=== PATIENT | female | born 1985 | race Caucasian/White ===

== ENCOUNTER → 2021-10-07 02:56 | Outpatient (CLI) | payer OTHER, SELFPAY ==
[2021-10-07 13:57] LABS: Influenza Control Positive
[2021-10-08 14:36] LABS: SARS-CoV-2 RNA PCR Positive
== END ==
PROVIDERS: PCP Family Medicine; Visit Provider Nurse Practitioner Family
DX: R50.9 Fever, unspecified (principal); R68.89 Other general symptoms and signs; U07.1 COVID-19
CPT/HCPCS: 87804; C9803; U0003; U0005

== ENCOUNTER 2022-03-24 01:17 | Day surgery (SDC) | payer OTHER, SELFPAY ==
[2022-03-16 13:06] VITALS: BMI 52.2
--- NOTE | 2022-03-16 13:24 | PC.NURSE ---
Report to the Outpatient Waiting Room, entrance under the green pavilion located off [facility], at time 0600 on date 03/24/22 OR Time: 0730_. - You and your visitor will be asked a series of questions to screen for COVID 19 for your protection. - Only one visitor is allowed at this time. - The patient visitor is requested to leave or wait in car when not with patient. - A mask is required within the hospital. Patients may have clear liquids (water, carbonated beverages, clear teas, apple juice) until 3 hours prior to surgery with a maximum of 20 ounces. - No food from midnight until time of surgery - Infants may have breast milk until 4 hours before surgery, formula 6 hours prior to surgery. - Children will be allowed to drink immediately following surgery. If applicable, please bring a bottle or sippy cup to assist with drinking. Juice, water, soda, and popsicles are readily available. For infants on formula, please bring formula the day of surgery. Pacifiers are allowed. Take the following medications with a SIP of water the morning of surgery:n/a_ Medications to discontinue per physician n/a Date to take last dose Please no make-up, nail swazi, hairspray, perfume, deodorant, or body powder the day of surgery. No jewelry (including any body piercings) or valuables the day of surgery, leave them at home. Please take a shower or bath the night before, or the morning of, surgery with an antibacterial soap. Wear comfortable, loose fitting clothing. Children are encouraged to wear pajamas. - Jewelry must be removed prior to entering the operating room. Rings and piercings that are not removed may be cut off. - The hospital will not accept responsibility for valuables. - Please leave all valuables, including medications, at home the day of surgery. If you are going home after surgery, a licensed local owner operator truck driver must drive you home. - NO public transportation without another adult. - We recommend that an adult stay with you for 24 hours following discharge. - We also recommend that you do not drive, make important decision, drink alcoholic beverages, or take any drugs that were not prescribed by your health care provider for at least 24 hours after your discharge time. For Pediatric surgeries, we recommend two adults accompany the child home (only one inside the building at this time). Follow any additional instructions given to you from your surgeon. If you or anyone in your household have experienced Covid symptoms in the past week, please notify your surgeon or the nurse liaison at the phone number below for possible testing. Telephone instructions given to Angela Wiley and asked if any additional questions and then verbalized understanding. Patient advised to call surgeon office or pre surgery nurse liaison [phone] if any additional questions.
[2022-03-24] VITALS (8 sets, daily range): BP systolic 97–138; BP diastolic 76–93; PULSE 72–88; RESP 12–20; TEMP 36.3–37.4; O2SAT 97–100
[2022-03-24] MEDS: ACETAMINOPHEN 500 MG TABLET 1000 MG PO (06:22)
--- NOTE | 2022-03-24 06:49 | WPDANESEPPF ---
Anes - Initial Pre Proc Eval Procedure: Operation Date: 03/24/22 07:30 Proposed Procedures p Hysteroscopy with Biopsy of Endometrium and Polypectomy - Ej Jovel MD Date/Time: 03/24/22 06:49 Surgeon: Ej Jovel MD Pre Op Diagnosis: irregular periods Patient Data Age: 36 Gender: F Height: 1.68 m Weight: 149.5 kg Last Vital Signs Temp 36.3 C L 03/24/22 06:16 Pulse 88 03/24/22 06:16 Resp 16 03/24/22 06:16 BP 136/89 03/24/22 06:16 Pulse Ox 97 03/24/22 06:16 O2 Del Method Room Air 03/24/22 06:16 Allergies Allergy/AdvReac Type Severity Reaction Status Date / Time No Known Allergies Allergy Mild Verified 08/14/15 10:15 Home Medications Medication Instructions Recorded Confirmed Type metformin 500 mg tablet 500 mg PO BID 03/16/22 03/24/22 History Patient hx anesthesia problems: none Family hx anesthesia problems: none Results Review: All pre-operative results and documents have been reviewed as part of the pre-operative evaluation. [facility] Past Medical History Medical History (Updated 03/24/22 @ 06:50 by Karel Stallings MD) Morbid obesity with BMI of 50.0-59.9, adult Social History Social History Smoking status: Never smoker Alcohol intake: current Substance use: never Substance use type: does not use Living arrangements: with family Spiritual care concerns: No Anes - Eval Final PreProcedure Day of Procedure 03/24/22 06:49 Patient weight: super morbidly obese Heart: regular rate and rhythm Lungs: clear to auscultation and normal air movement Airway: Mallampati scale class II Neurological: alert and oriented Last oral intake: >/= 8 hours ASA classification: III Emergent: no Anesthetic plan: proceed Anesthesia type and monitoring: general GIVS and LMA Results Review: All pre-operative results and documents have been reviewed as part of the pre-operative evaluation. Informed Consent: The patient's anesthetic plan and its attendant risks and benefits were discussed with the patient/family/POA. Questions were solicited and answers provided to the satisfaction of the patient/family/POA.
[2022-03-24] MEDS: LACTATED RINGERS 1,000 ML 30 ML IV CONT (07:17)
--- NOTE | 2022-03-24 07:20 | WPDHPUPDATE1 ---
History and Physical Update Update Date/Time: 03/24/22 07:20 History and Physical has been reviewed, including an updated exam of the patient. There are NO changes in the patient's condition. Risks, benefits, and alternatives have been discussed and questions answered. Patient agrees to proceed with procedure.
--- NOTE | 2022-03-24 08:07 | W.PM.PROC2 ---
Procedure Note - Detailed Date of Procedure 03/24/22 Pre-op Diagnosis irregular periods, endometrial lesion Post-op Diagnosis Same (Endocervical lesions) Procedure Performed Hysteroscopy D&C Surgeon Ej Jovel MD Anesthesia MAC Indications abnormal uterine bleeding, endometrial lesion Findings Two small polyps at the internal cervical os. Curettage removed these with the exception of some fibrous tissue. Firm redundant tissue throughout the endometrium. Normal vulva vagina and cervix. Description of Procedure the patient was taken the operating room. She was prepped and draped in the dorsal lithotomy position after induction of mac anesthesia. A speculum was placed in the vagina. The cervix was grasped with a tenaculum. The cervix was dilated about 1 cm. The hysteroscope was inserted. The intrauterine cavity and endocervix were evaluated. Hysteroscope was withdrawn. A medium-size curette was used to curettage all the surfaces were within the endometrial cavity. the sample was collected on Telfa and sent to pathology. The hysteroscope was reinserted and the above findings were noted. Patient tolerated the procedure well. The speculum and tenaculum were removed. She was taken recovery room in stable condition. Sponge lap and needle counts were correct x2. Estimated Blood Loss 40 Drains No Packing No Pathology Yes Complications No immediate complications Condition Stable Disposition PACU
[2022-03-24] MEDS: oxyCODONE HCL (*CRX) 5 MG TAB IR PO (09:00)
== END 2022-03-24 09:50 | disposition home or self-care (01) ==
PROVIDERS: PCP Family Medicine; Visit Provider Obstetrics & Gynecology
PROC: 0U5B8ZZ Destruction of Endometrium, Via Natural or Artificial Opening Endoscopic (ICD-10-PCS; CPT 58563; principal; 2022-03-24 07:30)
DX: N92.6 Irregular menstruation, unspecified (principal); N84.0 Polyp of corpus uteri; E66.01 Morbid (severe) obesity due to excess calories; Z68.43 Body mass index [BMI] 50.0-59.9, adult
CPT/HCPCS: 58558; 88305; A9270; J1100; J1885; J2250; J2405; J2704; J3010; J7030; J7120

== ENCOUNTER 2022-04-12 19:01 | Emergency (ER) | payer OTHER, SELFPAY ==
[2022-04-12 19:05] VITALS: BP 134/88; PULSE 103; RESP 16; TEMP 37.7; O2SAT 98
--- NOTE | 2022-04-12 19:07 | ED.URI ---
HPI - URI/Sore Throat General Chief Complaint: Skin/Abscess/Foreign Body Stated Complaint: Headache,Fever Time Seen by Provider: 04/12/22 19:07 Source: patient Mode of arrival: ambulatory Limitations: no limitations History of Present Illness HPI Narrative: 36 yo F presents with c/o low grade fever, fatigue, generalized weakness, headache for 2 days. States her removed tick from her scalp tuesday. Thinks may have been there one day. States he first used heat to try to get tick to unattached but did not work. Then he cut a whole in an old credit card and put alot of pressure against her head with the card and finally pulled it off. States her scalp was very sore from removing it and developed fever and fatigue 2 days later. All systems reviewed and negative except as noted above. Related Data Home Medications Medication Instructions Recorded Confirmed metformin 500 mg tablet 500 mg PO BID 03/16/22 04/12/22 Allergies Allergy/AdvReac Type Severity Reaction Status Date / Time No Known Allergies Allergy Mild Verified 04/12/22 19:05 Review of Systems Review of Systems: CONSTITUTIONAL: Reports fever and fatigue. Denies chills, or sweats. EYES: Denies visual changes, redness, or discharge. ENT: Denies rhinorrhea, congestion, sore throat, or otalgia. CARDIOVASCULAR: Denies chest pain, palpitations, or edema. RESPIRATORY: Denies cough or dyspnea. GASTROINTESTINAL: Denies abdominal pain, nausea, vomiting, or diarrhea. GENITOURINARY: Denies dysuria or hematuria. SKIN: Denies rash or itching. MUSCULOSKELETAL: Denies back pain, joint pain, or myalgia. NEUROLOGIC: Reports headache. Denies numbness, or weakness. PSYCHIATRIC: Denies anxiety or depression. All other systems reviewed are negative, except as documented in HPI. [facility] Past Medical History Medical History (Updated 04/12/22 @ 19:34 by Nya Garcia NP) Morbid obesity with BMI of 50.0-59.9, adult Social History Social History Smoking status: Never smoker Alcohol intake: current Substance use: never Substance use type: does not use Spiritual care concerns: No Comments At time of signature, agree with nursing past medical, surgical, social and family history. There is no relevant family history pertinent to the presenting complaint. Exam Narrative: GENERAL: This is a well-nourished, well-developed patient, in no apparent distress. HEAD: normocephalic, atraumatic. EYES: PERRL. Sclera clear/white. Vision is grossly intact. EARS: External ears normal NOSE: External nose normal NECK: Neck supple, non-tender without lymphadenopathy, masses or thyromegaly. CARDIOVASCULAR: Regular rate and rhythm without murmurs, gallops, or rubs. RESPIRATORY: Clear to auscultation. Breath sounds equal bilaterally. No wheezes, rales, or rhonchi. SKIN: warm, Dry, intact with no suspicious lesions or rash, good texture and turgor. erythema to L crown area of scalp approx. 5cm diamter with warmth. scab to center mostly likely from tick bite. swollen. no fluctuance. NEURO: awake, alert, and oriented to person, place and time. There were no obvious focal neurologic abnormalities. EXTREMITIES: No joint tenderness, effusion, or edema noted. Course Course Level of Care: Express Care Visit Vital Signs Vital signs: Vital Signs Temperature 37.7 C H 04/12/22 19:05 Pulse Rate 103 H 04/12/22 19:05 Respiratory Rate 16 04/12/22 19:05 Blood Pressure 134/88 04/12/22 19:05 Pulse Oximetry 98 04/12/22 19:05 Oxygen Delivery Room Air 04/12/22 19:05 Temperature 37.7 C H 04/12/22 19:05 Pulse Rate 103 H 04/12/22 19:05 Respiratory Rate 16 04/12/22 19:05 Blood Pressure 134/88 04/12/22 19:05 Pulse Oximetry 98 04/12/22 19:05 Oxygen Delivery Room Air 04/12/22 19:05 Reviewed MDM - URI/Sore Throat MDM Narrative Medical decision making narrative: Patient is aware of diagnosis, understands and agrees to treatment plan. Anticipatory gu
== END 2022-04-12 19:35 | disposition home or self-care (01) ==
PROVIDERS: Emergency Provider Nurse Practitioner Family; PCP Family Medicine
DX: L03.811 Cellulitis of head [any part, except face] (principal); S00.06XA Insect bite (nonvenomous) of scalp, initial encounter; W57.XXXA Bitten or stung by nonvenomous insect and other nonvenomous arthropods, initial encounter; Z20.822 Contact with and (suspected) exposure to COVID-19; E66.01 Morbid (severe) obesity due to excess calories; Z68.43 Body mass index [BMI] 50.0-59.9, adult
CPT/HCPCS: 87426; 99213; C9803; G0463

== ENCOUNTER 2022-05-22 07:25 | Outpatient (CLI) | payer OTHER, SELFPAY ==
[2022-05-25 20:42] LABS: Progesterone 12.5 ng/mL (***)
== END 2022-05-22 07:26 | disposition home or self-care (01) ==
LOC: ANHLAB 07:28
PROVIDERS: PCP Family Medicine; Visit Provider Advanced Practice Midwife
DX: Z31.9 Encounter for procreative management, unspecified (principal)
CPT/HCPCS: 36415; 84144

== ENCOUNTER 2022-06-12 07:11 | Outpatient (CLI) | payer OTHER, SELFPAY | END 2022-06-12 07:12 | disposition home or self-care (01) | LOC: ANHLAB 07:14 | PROVIDERS: PCP Family Medicine; Visit Provider Advanced Practice Midwife | DX: N97.9 Female infertility, unspecified (principal) | CPT/HCPCS: 36415; 84702 ==

== ENCOUNTER 2022-06-14 05:58 | Emergency (ER) | payer OTHER, SELFPAY ==
--- NOTE | ~2022-06-14 | US_ITS ---
EXAMINATION: US OB <=14 wk fetus w TV DATE: 06/14/2022 08:18 INDICATION: Vaginal bleeding. TECHNIQUE: Real-time transabdominal and transvaginal pelvic ultrasound was performed. COMPARISON: None. FINDINGS: TRANSABDOMINAL ULTRASOUND: The uterus measures 9.1 x 3.2 x 7.5 cm. TRANSVAGINAL ULTRASOUND: There is no visible intrauterine gestational sac. The endometrial complex me asures 1.8 cm in thickness. There is trace fluid in the cervix. The ovaries are not visualized. There is no free fluid in the pelvis. IMPRESSION: 1. No visible intrauterine gestational sac, which may be normal in early . Ectopic pregnanc y and spontaneous are not excluded. Serial beta-hCGs are recommended. Reviewed, dictated and finalized at location A. IMPRESSION: 1. No visible intrauterine gestational sac, which may be normal in early pregn dandre. Ectopic and spontaneous are not excluded. Serial beta- hCGs are recommended.
[2022-06-14 06:08] VITALS: BP 131/86; PULSE 97; RESP 18; TEMP 36.4; O2SAT 98
--- NOTE | 2022-06-14 06:15 | ED.GENADULT ---
HPI - General Adult General Chief complaint: Vaginal Bleeding Stated complaint: Vag Bleeding 6 Weeks Time Seen by Provider: 06/14/22 06:19 History of Present Illness HPI narrative: 36-year-old female that is approximately 6 weeks presented to the emergency department for evaluation of vaginal bleeding and lower abdominal cramping. Patient states she began having bleeding at 3 AM this morning. Patient states she has been passing clot as well. Patient has not yet had an ultrasound with this . Patient was started on progesterone 2 days ago. This is the patient's first . Patient follows up with Dr. Jovel and Dr. Cerrato. Related Data Home Medications Medication Instructions Recorded Confirmed metformin 500 mg tablet 500 mg PO BID 03/16/22 04/12/22 progesterone micronized 200 mg mg 06/14/22 06/14/22 capsule Allergies Allergy/AdvReac Type Severity Reaction Status Date / Time No Known Allergies Allergy Mild Verified 06/14/22 06:05 Review of Systems Review of Systems: CONSTITUTIONAL: Denies fever, chills, or sweats. EYES: Denies visual changes, redness, or discharge. ENT: Denies rhinorrhea, congestion, sore throat, or otalgia. CARDIOVASCULAR: Denies chest pain, palpitations, or edema. RESPIRATORY: Denies cough or dyspnea. GASTROINTESTINAL: Lower abdominal pain with vaginal bleeding, denies nausea or vomiting GENITOURINARY: Denies dysuria or hematuria. SKIN: Denies rash or itching. MUSCULOSKELETAL: Denies back pain, joint pain, or myalgia. NEUROLOGIC: Denies headache, numbness, or weakness. REPLACED BY [facility] Past Medical History Medical History (Updated 06/14/22 @ 09:17 by Krystle Elizabeth MD) Morbid obesity with BMI of 50.0-59.9, adult Social History Social History Smoking status: Never smoker Alcohol intake: current Substance use: never Substance use type: does not use Spiritual care concerns: No Exam Narrative: APPEARANCE: Well appearing, no pain, no distress, well-nourished. HEAD: normocephalic, atraumatic. EYES: PERRLA/EOMI, conjunctivae clear. NOSE: Normal no drainage THROAT: Pharynx clear, no exudate. NECK: Supple. No adenopathy, no masses. RESPIRATORY: Airway patent, respirations nonlabored. Clear to auscultation bilaterally, no rales, rhonchi, wheezing. CARDIOVASCULAR: Regular rate and rhythm without murmurs rubs or gallops. ABDOMINAL: Soft, nontender, nondistended, normal bowel sounds Pelvic: Some vaginal bleeding and clot in the pelvic vault. No hemorrhaging. MUSCULOSKELETAL: Moves all extremities. Strength/ROM intact, No edema, No calf tenderness. NEURO: Alert. Cranial nerves II through XII intact. Grossly intact SKIN: Warm, dry. Normal Color Course Course Emergency Course: At time of signout to Dr. Elizabeth ultrasound is pending. Vital Signs Vital signs: Vital Signs Temperature 36.4 C 06/14/22 06:08 Pulse Rate 97 06/14/22 06:08 Respiratory Rate 18 06/14/22 06:08 Blood Pressure 131/86 06/14/22 06:08 Pulse Oximetry 98 06/14/22 06:08 Temperature 36.4 C 06/14/22 06:08 Pulse Rate 89 06/14/22 09:10 Respiratory Rate 17 06/14/22 09:10 Blood Pressure 134/68 06/14/22 09:10 Pulse Oximetry 99 06/14/22 09:10 Medical Decision Making Vital Signs Vital Signs: Vital Signs Temperature 36.4 C 06/14/22 06:08 Pulse Rate 97 06/14/22 06:08 Respiratory Rate 18 06/14/22 06:08 Blood Pressure 131/86 06/14/22 06:08 Pulse Oximetry 98 06/14/22 06:08 Temperature 36.4 C 06/14/22 06:08 Pulse Rate 89 06/14/22 09:10 Respiratory Rate 17 06/14/22 09:10 Blood Pressure 134/68 06/14/22 09:10 Pulse Oximetry 99 06/14/22 09:10 Lab Data Result diagrams: 06/14/22 06:19 Labs: Lab Results 06/14/22 06/14/22 06/14/22 Range/Units 06:19 06:19 06:19 WBC 14.1 H (4.5-10.0) K/mm3 RBC 4.16 L (4.2-5.4) M/mm3 Hgb 12.3 (12.0-15.0) g/dL Hct 36.8 L (37.0-47.0) % MCV
[2022-06-14] MEDS: fentaNYL CITRATE INJ (*CRX) 100 MCG/2 ML VIAL 50 MCG IV PUSH (06:21)
[2022-06-14 06:24] LABS: Basophils Percent Auto 0.3 % (0.2-1.2); Eosinophils Absolute Auto 0.2 K/mm3 (0-0.3); Eosinophils Percent Auto 1.1 % (0-4.4); Hematocrit 36.8 % (37.0-47.0); Hemoglobin 12.3 g/dL (12.0-15.0); Immature Granulocyte Absolute 0.08 K/mm3 (0.00-0.031); Immature Granulocyte Percent A 0.6 % (0-0.5); Lymphocytes Absolute Auto 2.26 K/mm3 (0.9-3.2); Mean Corpuscular HGB Conc 33.4 g/dl (32-36); Mean Corpuscular Hemoglobin 29.6 pg (26-34); Mean Corpuscular Volume 88.5 fl (80-100); Mean Platelet Volume 10.1 fl (7.4-10.4); Monocytes Absolute Auto 0.7 K/mm3 (0.1-0.6); Monocytes Percent Auto 5.1 % (2.6-8.5); Neutrophils Absolute Auto 10.9 K/mm3 (1.3-6.7); Neutrophils Percent Auto 76.9 % (45.5-73.1); Platelet Count Result 302 k/mm3 (150-375); Red Blood Count 4.16 M/mm3 (4.2-5.4); Red Cell Distribution Width 15.9 % (11.5-14.5); White Blood Count 14.1 K/mm3 (4.5-10.0)
--- NOTE | 2022-06-14 06:42 | PC.NURSE ---
This nurse assisted DR. Quinn with pelvic exam at this time. Pt tolerated well.
[2022-06-14 07:14] VITALS: BP 117/81; PULSE 82; RESP 18; O2SAT 100
--- NOTE | 2022-06-14 07:38 | PC.NURSE ---
pt in ultrasound at this time.
[2022-06-14 09:10] VITALS: BP 134/68; PULSE 89; RESP 17; O2SAT 99
== END 2022-06-14 09:35 | disposition home or self-care (01) ==
PROVIDERS: Emergency Medicine; Emergency Provider Emergency Medicine; PCP Family Medicine
DX: O20.0 Threatened abortion (principal); Z3A.01 Less than 8 weeks gestation of pregnancy; Z79.84 Long term (current) use of oral hypoglycemic drugs
CPT/HCPCS: 36415; 76801; 76817; 84702; 85025; 85461; 96374; 99284; J3010

== ENCOUNTER 2022-06-16 06:57 | Outpatient (CLI) | payer OTHER, SELFPAY ==
[2022-06-16 07:59] LABS: Beta HCG Quantitative 654.58 mIU/ML
== END 2022-06-16 06:58 | disposition home or self-care (01) ==
LOC: ANHLAB 06:59
PROVIDERS: PCP Family Medicine; Visit Provider Emergency Medicine
DX: O20.9 Hemorrhage in early pregnancy, unspecified (principal); Z3A.00 Weeks of gestation of pregnancy not specified
CPT/HCPCS: 36415; 84702

== ENCOUNTER 2022-06-18 09:36 | Day surgery (SDC) | payer OTHER, SELFPAY ==
[2022-06-18 10:14] VITALS: BP 142/100; PULSE 79; RESP 20; TEMP 37; O2SAT 99; BMI 51.7
[2022-06-18] MEDS: ACETAMINOPHEN 500 MG TABLET 1000 MG PO (10:50)
--- NOTE | 2022-06-18 10:59 | P.PNAN_ITS ---
Anes - Initial Pre Proc Eval Procedure: Operation Date: 06/18/22 12:00 Proposed Procedures p Suction Dilatation and Curettage - Ej Jovel MD Date/Time: 06/18/22 10:59 Surgeon: Ej Jovel MD Pre Op Diagnosis: missed AB Patient Data Age: 36 Gender: F Height: Weight: Allergies Allergy/AdvReac Type Severity Reaction Status Date / Time No Known Allergies Allergy Mild Verified 06/18/22 10:13 Home Medications Medication Instructions Recorded Confirmed Type metformin 500 mg tablet 500 mg PO BID 03/16/22 06/18/22 History progesterone micronized 200 mg 200 mg PO DAILY 06/14/22 06/18/22 History capsule apple cider vinegar 500 mg tablet 500 mg PO DAILY 06/18/22 06/18/22 History ascorbic acid (vitamin C) 100 mg 100 mg PO DAILY 06/18/22 06/18/22 History tablet prenat.vits,sarath,gko-istl-zoxnc 1 tablet PO DAILY 06/18/22 06/18/22 History Patient hx anesthesia problems: none Family hx anesthesia problems: none Results Review: All pre-operative results and documents have been reviewed as part of the pre- operative evaluation. [facility] Past Medical History Medical History (Updated 06/15/22 @ 00:01 by Background Zi) Morbid obesity with BMI of 50.0-59.9, adult Social History Social History Smoking status: Never smoker Alcohol intake: current Substance use: never Substance use type: does not use Spiritual care concerns: No Anes - Eval Final PreProcedure Day of Procedure 06/18/22 10:59 Patient weight: morbidly obese Heart: regular rate and rhythm Lungs: clear to auscultation Airway: Mallampati scale class II Neurological: alert and oriented Last oral intake: >/= 8 hours ASA classification: III Emergent: no Anesthetic plan: proceed Anesthesia type and monitoring: general GIVS and LMA and standard monitoring Results Review: All pre-operative results and documents have been reviewed as part of the pre- operative evaluation. Informed Consent: The patient's anesthetic plan and its attendant risks and benefits were discussed with the patient/family/POA. Questions were solicited and answers provided to the satisfaction of the patient/family/POA.
[2022-06-18] MEDS: LACTATED RINGERS 1,000 ML 30 ML IV CONT (11:00)
--- NOTE | 2022-06-18 12:27 | WPDHPUPDATE1 ---
History and Physical Update Update Date/Time: 06/18/22 12:27 History and Physical has been reviewed, including an updated exam of the patient. There are NO changes in the patient's condition. Risks, benefits, and alternatives have been discussed and questions answered. Patient agrees to proceed with procedure.
[2022-06-18] MEDS: KETOROLAC 30 MG/ML VIAL (*BKC) IV PUSH (12:33)
--- NOTE | 2022-06-18 13:00 | P.OP_ITS ---
Procedure Note - Detailed Date of Procedure 06/18/22 Pre-op Diagnosis missed AB Post-op Diagnosis Same Procedure Performed Suction D&C Surgeon Ej Jovel MD Anesthesia MAC Indications missed Findings normal-appearing vulva vagina and cervix to. Moderate amount of products conception within the uterus. 8 cm uterus Description of Procedure the patient was taken the operating room. She was prepped and draped in dorsal lithotomy position after induction of mac anesthesia. A speculum was placed in the vagina. Cervix grasped with tenaculum. The cervix was dilated to about 1 cm Using Hernández dilators. A 8. Macedonian curved curette was used to perform suction D&C. The curette was introduced and vacuum was applied. The curette was removed over all surfaces of the intrauterine cavity multiple times. This was done until all the surfaces were clear and had the familiar grainy texture they can be felt through the instrument. A sharp curette was then used to curettage all the surfaces. The suction cup was then reapplied 1 more time to remove any debris. The instruments were removed. The speculum and tenaculum were removed. The patient tolerated the procedure well. She was taken recovery room stable condition. Estimated Blood Loss 50 Drains No Packing No Pathology Yes Complications No immediate complications Condition Stable Disposition PACU
[2022-06-18 13:01] VITALS: BP 126/76; PULSE 66; RESP 16; TEMP 36.6; O2SAT 100
[2022-06-18 13:15] VITALS: BP 131/92; PULSE 73; RESP 12; O2SAT 100
[2022-06-18] MEDS: fentaNYL CITRATE INJ (*CRX) 100 MCG/2 ML VIAL 25 MCG IV PUSH ×4 (13:17→13:27)
[2022-06-18 13:30] VITALS: BP 112/79; PULSE 78; RESP 20; O2SAT 99
[2022-06-18 13:40] VITALS: BP 129/89; PULSE 81; RESP 20
[2022-06-18 14:10] VITALS: BP 119/85; PULSE 74; RESP 20
[2022-06-18] MEDS: oxyCODONE HCL (*CRX) 5 MG TAB IR PO (14:10)
== END 2022-06-18 14:39 | disposition home or self-care (01) ==
PROVIDERS: PCP Family Medicine; Visit Provider Obstetrics & Gynecology
PROC: (CPT 59820; principal; 2022-06-18 12:00)
DX: O02.1 Missed abortion (principal); Z79.84 Long term (current) use of oral hypoglycemic drugs; Z3A.00 Weeks of gestation of pregnancy not specified
CPT/HCPCS: 59820; 88305; A9270; J1100; J1885; J2250; J2405; J2704; J3010; J7120

== ENCOUNTER 2024-10-23 15:45 | Inpatient (IN) | payer OTHER, SELFPAY ==
[2024-10-23] VITALS (18 sets, daily range): BP systolic 109–133; BP diastolic 56–85; PULSE 86–116; TEMP 36.1–36.4; BMI 50.1
[2024-10-23 16:56] LABS: Basophils Percent Auto 0.4 % (0.2-1.2); Eosinophils Absolute Auto 0.2 K/mm3 (0-0.3); Eosinophils Percent Auto 1.7 % (0-4.4); Hematocrit 37.5 % (37.0-47.0); Hemoglobin 12.9 g/dL (12.0-15.0); Immature Granulocyte Absolute 0.03 K/mm3 (0.00-0.031); Immature Granulocyte Percent A 0.3 % (0-0.5); Lymphocytes Absolute Auto 1.71 K/mm3 (0.9-3.2); Mean Corpuscular HGB Conc 34.4 g/dl (32-36); Mean Corpuscular Volume 90.1 fl (80-100); Mean Platelet Volume 12.1 fl (7.4-10.4); Monocytes Absolute Auto 0.9 K/mm3 (0.1-0.6); Monocytes Percent Auto 9.9 % (2.6-8.5); Neutrophils Absolute Auto 6.2 K/mm3 (1.3-6.7); Neutrophils Percent Auto 68.7 % (45.5-73.1); Platelet Count Result 172 k/mm3 (150-375); Red Blood Count 4.16 M/mm3 (4.2-5.4); Red Cell Distribution Width 14.7 % (11.5-14.5)
[2024-10-23] MEDS: miSOPROStol 25 MCG TABLET 50 MCG BUCCAL ×2 (17:07→21:10)
[2024-10-23 17:31] LABS: Rapid Plasma Reagin Non-Reactive (NonReactive)
[2024-10-23 17:48] LABS: HIV 1/2 Ab P24 Ag Result Negative (Negative)
[2024-10-24] VITALS (106 sets, daily range): BP systolic 67–156; BP diastolic 33–101; PULSE 78–200; RESP 16–18; TEMP 36.7–37.8; O2SAT 93–100
[2024-10-24] MEDS: fentaNYL CITRATE INJ (*CRX) 100 MCG/2 ML VIAL 50 MCG IV PUSH (00:54)
[2024-10-24] MEDS: LACTATED RINGERS 1,000 ML 125 ML IV CONT ×2 (01:43→03:13)
--- NOTE | 2024-10-24 02:20 | WPDANESEPP ---
Anes - Eval Pre Procedure Procedure: Labor epidural Date/Time: 10/24/24 02:20 Surgeon: Becka Preop Diagnosis: Abdominal pain with contractions Pre Op Diagnosis: Induction of Labor Patient Data Age: 39 Gender: F Height: 1.7 m Weight: 145 kg Last Vital Signs Temp 97 F L 10/23/24 18:15 Pulse 82 10/24/24 02:04 BP 110/55 L 10/24/24 02:04 O2 Del Method Room Air 10/23/24 18:25 Allergies Allergy/AdvReac Type Severity Reaction Status Date / Time No Known Allergies Allergy Mild Verified 10/23/24 17:24 Home Medications ?Medication ?Instructions ?Recorded ?Confirmed ?Type prenat.vits,sarath,fwb-ylpc-zyocl 1 tablet PO DAILY 06/18/22 10/23/24 History Laboratory Tests 10/23/24 16:09 WBC 9.0 K/mm3 (4.5-10.0) RBC 4.16 L M/mm3 (4.2-5.4) Hgb 12.9 g/dL (12.0-15.0) Hct 37.5 % (37.0-47.0) MCV 90.1 fl (80-100) MCH 31.0 pg (26-34) MCHC 34.4 g/dl (32-36) RDW 14.7 H % (11.5-14.5) Plt Count 172 k/mm3 (150-375) MPV 12.1 H fl (7.4-10.4) Immature Gran % (Auto) 0.3 % (0-0.5) Neut % (Auto) 68.7 % (45.5-73.1) Lymph % (Auto) 19.0 % (18.3-44.2) Pettis % (Auto) 9.9 H % (2.6-8.5) Eos % (Auto) 1.7 % (0-4.4) Baso % (Auto) 0.4 % (0.2-1.2) Lymph # (Auto) 1.71 K/mm3 (0.9-3.2) Pettis # (Auto) 0.9 H K/mm3 (0.1-0.6) Eos # (Auto) 0.2 K/mm3 (0-0.3) Baso # (Auto) 0.0 K/mm3 (0.0-0.1) Abs Immat Gran (auto) 0.03 K/mm3 (0.00-0.031) Absolute Neuts (auto) 6.2 K/mm3 (1.3-6.7) Absolute Nucleated RBC 0.000 K/mm3 (0.0-0.012) Nucleated RBC % 0.0 % (0.0-0.2) RPR Non-reactive (NonReactive) HIV 1&2 Ab/P24 Ag 4thGn Negative (Negative) Blood Type O Positive Antibody Screen Negative : gestational age HCG: positive Patient hx anesthesia problems: none Family hx anesthesia problems: none Results Review: All pre-operative results and documents have been reviewed as part of the pre-operative evaluation. [facility] Past Medical History Medical History Morbid obesity with BMI of 50.0-59.9, adult Surgical History Surgical History H/O dilation and curettage Family History Family History Father No problems noted. Mother No problems noted. Sibling No problems noted. Other No pertinent family history Social History Social History Smoking status: Never smoker Second hand tobacco smoke exposure: No Alcohol intake: current Substance use: never Substance use type: does not use Do You Feel Safe in your Home?: Yes Lack of Transportation: No Lack of Food: Never True Current Housing: I Have Housing Concerned About Future Housing: No Difficulty Paying Gas/Electric Bills: No Difficulty Paying for Meds: No Currently Unemployed: No Education: Bachelor's Degree Difficulty w/ Childcare or Family Care: No Living arrangements: with family Occupation/Education: occupation 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
[2024-10-24] MEDS: PHENYLEPHRINE 1,000 MCG/10 ML SYRINGE 100 MCG IV PUSH ×2 (02:49→03:28)
[2024-10-24] MEDS: OXYTOCIN 30 UNITS/NS 500 ML 30 UNITS/500 ML BAG IV CONT (03:45)
--- NOTE | 2024-10-24 06:18 | WPDOBADMIT ---
Obstetrics - Admit Note Admission Note: record reviewed. No pertinent additions to the history and/or any subsequent changes in the physical findings that are not consistent with the expected course of the were found. Additions to the history and/or subsequent changes in the physical findings follow. Admit for IOL, IVF, obesity, SVE, anticipate vaginal delivery
[2024-10-24] MEDS: miSOPROStol 200 MCG TABLET 1000 MCG RECTAL (07:40)
[2024-10-24] MEDS: OXYTOCIN 30 UNITS/NS 500 ML 30 UNITS/500 ML BAG 125 UNITS IV CONT (07:49)
--- NOTE | 2024-10-24 08:43 | PM.OBPRVD ---
OB - Vaginal Delivery Note Procedure Delivery date: 10/24/24 Events: Other (IVF) Induction method: AROM, Per Misoprostol Protocol and Per Pitocin Protocol Delivery monitor: External FHT and External Uterine Route of delivery: Episiotomy description: None Laceration Description: Perineal - 2nd Degree Delivery repair: vicryl Specimen: Yes Quantitative Blood Loss (ml): 600 Anesthesia type: Epidural Disposition: Floor Baby Date of : 10/24/24 Time of : 07:16 Gestational Age by Date: 40 Infant gender: Male presentation: vertex position: Left Occiput Anterior Placenta delivery description: Spontaneous Cord Vessel Description: 3 Vessels, Nuchal Cord (x1) and True Knot (x1) score one minute: 8 score five minutes: 9
--- NOTE | 2024-10-24 10:25 | PC.NURSE ---
Patient transferred to post room #285 via wheelchair.. Support person present. Oriented to unit, room, information board, rooming in, admission packet and security measures. Patient verbalizes understanding.
[2024-10-24] MEDS: IBUPROFEN 600 MG TABLET PO ×2 (13:37→23:12)
[2024-10-24] MEDS: ACETAMINOPHEN 325 MG TABLET 650 MG PO (18:28)
[2024-10-25 04:34] LABS: Hematocrit 30.6 % (37.0-47.0); Hemoglobin 10.2 g/dL (12.0-15.0)
[2024-10-25 04:45] VITALS: BP 120/91; PULSE 84; RESP 16; TEMP 37.1; O2SAT 100
[2024-10-25] MEDS: IBUPROFEN 600 MG TABLET PO ×3 (07:31→22:30)
[2024-10-25 08:33] VITALS: BP 130/95; PULSE 91; RESP 16; TEMP 35.8; O2SAT 98
--- NOTE | 2024-10-25 09:23 | PC.NURSE ---
On 10/25/24, the [employer] students Juan Pablo and Edwina, provided care and completed [facility] documentation on this patient. I have reviewed the student's documentation and agree with the findings.
--- NOTE | 2024-10-25 09:37 | P.PNOB_ITS ---
OB - PN: Subj Subjective Date/time seen: 10/25/24 09:37 Patient comments: no complaints, pain well controlled, incisional pain, tolerating diet and flatus present OB - PN: Obj Data Labs 10/25/24 04:27 Labs: Laboratory Results - last 24 hr 10/25/24 04:27 Hgb 10.2 L Hct 30.6 L OB - PN A/P Plan day: 1 Plan: routine care Comments: No problems, routine care Time Spent With Patient Time: Total time spent is greater than 50% in coordination of care (as documented) at patient's floor/unit and/or counseling patient: Exam 2 Const: General: comfortable, no acute distress and alert Resp: Effort & Inspection: normal respiratory effort Auscultation: no crackles, no rales and no rhonchi Cardio: Rate: regular rate Heart sounds: no click, no murmurs and no rubs GI: Inspection: non-distended GI Palp: No Tenderness to palpation present (GI) Auscultation: normal bowel sounds Other: Incision - CDI Extrem: General: normal to inspection, no pedal edema and no calf tenderness
[2024-10-25] MEDS: ACETAMINOPHEN 325 MG TABLET 650 MG PO (12:44)
--- NOTE | 2024-10-25 14:11 | WPDANLDPN2 ---
Anes-Prog Note L&D Date/Time: 10/25/24 14:11 Comfortable throughout: labor and delivery Neuraxial method: epidural Epidural/Spinal procedure site: clean & non-tender Neuro status: Neuro function grossly intact. Cardiovascular status: normal Respiratory status: normal Airway patency: baseline Mental status: baseline Post-Op hydration status: normal Vital Signs: Last Vital Signs Temp 35.8 C L 10/25/24 08:33 Pulse 91 10/25/24 08:33 Resp 16 10/25/24 08:33 BP 130/95 H 10/25/24 08:33 Pulse Ox 98 10/25/24 08:33 O2 Del Method Room Air 10/24/24 20:20 Pain score (VAS): 10/12 Post-procedural complaints: none Patient feedback: Patient satisfied with anesthetic care.
[2024-10-25 19:56] VITALS: BP 104/66; PULSE 93; RESP 12; TEMP 37; O2SAT 97
--- OUTSIDE RECORDS SUMMARY | 2024-10-25 19:57 | XMS_ITS | Data Portability ---
Author Organization [facility] [place] Address [address] [place] [address] [place] [address] Care Team Providers Care Tray Packer Name Role Phone ARTURO ENRIQUEZ Primary Care Provider [phone] Assessment Encounter Date Assessment Date Assessment LastModified by Organization Details LastModified Time 10/17/2024 10/17/2024 Patient is _39__weeks . Discussed plan. Not available 10/17/2024 17:13:32 Plan of Treatment Reminders Order Date Submit Date Provider Last Modified By Organization Details Last Modified Time Details Appointments None recorded. Lab None recorded. Referral None recorded. Procedures None recorded. Surgeries None recorded. Imaging US, obstetric, biophysical profile + non-stress test 2024 025 [address], [address], [place], [address], 21:45:30 non-stress test 2024 [address] [facility] [address], [place], [address], 23:00:26 US, obstetric, biophysical profile + non-stress test 2024 025 [email or web address] [address], [address], [place], [address], 19:57:23 Medication Orders None recorded. Patient TargetsNo targets recorded. Patient InstructionsNo instructions recorded. Reason for Referral None Reported. Results Created Date Observation Date Name Description Value Unit Range Abnormal Flag Note LastModifiedBy Organization Detail LastModifiedTime 09/28/20 24 09/28/2024 CULTU RE: GROUP B STREP SCREE N, REFLE X SUSCE PTIBI LITY result report SEE RESULT S BELOW Test: Cultu re: Group B Strep , Refle x Susce ptibi lity ([facility]/ [facility] ) Speci men Sourc e: Vagin a/Rec oliver Speci men Type: Vagin al/Re ctal Speci men Date: 09/28 1617 Resul t Date: 10/01 1422 Resul t Statu s: Final resul t Abnor mal: No Resul ting Lab: [facility] [address] [facility] [address] Tel: CULTU RE ----- ----- ----- --- No Group B strep isola gurinder at 2 days (benny ctive broth enhan cemen t) Not Available [facility] (Lab) [address] [facility], [place], [address], 10/01/2024 15:26:12 09/12/20 24 09/12/2024 US, obste tric, bioph ysica l profi le + non-s tress test No observ ation record ed. [email or web address] [place] [address], [place], [address], 09/12/2024 16:23:05 09/12/20 24 09/12/2024 US, obste tric, bioph ysica l profi le + non-s tress test No observ ation record ed. [email or web address] [address], [place], [address], 09/12/2024 22:32:08 09/12/20 24 09/12/2024 non-s tress test No observ ation record ed. [email or web address] [place] [address], [place], [address], 09/12/2024 15:39:01 09/19/20 24 09/19/2024 US, obste tric, bioph ysica l profi le + non-s tress test No observ ation record ed. [facility] [address], [place], [address], 09/19/2024 15:55:02 09/19/20 24 09/19/2024 US, obste tric, follo w-up No observ ation record ed. [email or web address] [address], [place], [address], 09/20/2024 13:38:40 09/19/20 24 09/19/2024 non-s tress test No observ ation record ed. [email or web address] [place] [address], [place], [address], 09/19/2024 16:01:01 09/27/20 24 09/27/2024 US, obste tric, follo w-up No observ ation record ed. [facility] [address], [place], [address], 09/27/2024 18:04:59 09/27/20 24 09/27/2024 US, obste tric, bioph ysica l profi le + non-s tress test No observ ation record ed. [facility] [address], [place], [address], 09/27/2024 18:05:10 09/27/20 24 09/27/2024 US, obste tric, follo w-up No observ ation record ed. [email or web address] [address], [place], [address], 09/27/2024 21:15:51 09/27/20 24 09/27/2024 non-s tress test No observ ation record ed. [email or web address] [place] [address], [place], [address], 09/27/2024 17:37:38 10/04/19 25 10/04/2024 US, obste tric, bioph ysica l profi le + non-s tress test No observ ation record ed. [email or web address] [place] [address], [place], [address], 10/04/2024 18:24:21 10/04/19 25 10/04/2024 non-s tress test No observ ation record ed. [email or web address] [place] [address], [place], [address], 10/04/2024 17:40:10 10/04/1910/04/2024 US, obste tric, bioph ysica l profi le + non-s tress test No observ ation record ed. [email or web address] [address], [place], [address], 10/04/2024 21:17:49 10/10/19 25 10/10/2024 US, obste tric, bioph ysica l profi le + non-s tress test No observ ation record ed. [email or web address] [place] [address], [place], [address], 10/10/2024 18:08:16 10/10/19 25 10/10/2024 US, obste tric, bioph ysica l profi le + non-s tress test No observ ation record ed. [email or web address] [address], [place], [address], 10/10/2024 21:50:21 10/12/19 25 10/10/2024 non-s tress test No observ ation record ed. [email or web address] [place] [address], [place], [address], 10/12/2024 17:13:07 10/12/1910/10/2024 non-s tress test No observ ation record ed. [email or web address] Not Available 10/12 17:15:42 10/17/19 25 10/17/2024 US, obste tric, bioph ysica l profi le + non-s tress test No observ ation record ed. [email or web address] [place] [address], [place], [address], 10/17/2024 17:12:41 10/17/1910/17/2024 US, obste tric, follo w-up No observ ation record ed. [address], [place], [address], 10/18/2024 16:06:17 10/22/19 25 10/17/2024 non-s tress test No observ ation record ed. [email or web address] [place] [address], [place], [address], 10/22/2024 20:28:40 Result Notes None recorded. Problems Name Problem SNOMED Code Status Onset Date Resolution Date Notes Provider Name and Address Organization Details Recorded Time Dysfunct ional uterine bleeding Completed 201012/01/2021 Other disorder s of menstrua tion and other abnormal bleeding from female genital tract;Re corded Elsewher e: No Locat ion: [facility] S ource: EHR Supervisor Cured Meats noelle: N Karissa ce ID: 0001 William lable Time: 04:00:00 PM Rochelle Caputo [facility] [place] - [facility] 12:42:11 Urinary tract infectio us disease [id number] Completed 201212/01/2021 Urinary Tract Infectio n;Record ed Elsewher e: No Locat ion: [facility] S ource: EHR Supervisor Cured Meats noelle: N Practi ce ID: 0001 William lable Time: 09:30:00 AM Rochelle Caputo diane, [facility] 2 12:42:[address] Concept Completed 201812/01/2021 Encntr for general adult medical exam w/o abnormal findings ;Recorde d Elsewher e: No [facility]at [facility] N Teodoroti ce ID: 0001 William lable Time: 09:15:00 AM Rochelle Caputo [facility], [facility] 2 12:42:32 Female genital organ symptoms Completed 201212/01/2021 Unspecif ied symptom associat ed with female genital organs;R ecorded Elsewher e: No Locat ion: [facility] S ource: EHR Supervisor Cured Meats noelle: N Teodoroti ce ID: 0001 William lable Time: 09:30:00 AM Rochelle Caputo [facility], [facility] 2 12:42:17 Screenin g for malignan t neoplasm of cervix Completed 201212/01/2021 Screenin g for malignan t neoplasm s of the cervix;R ecorded Elsewher e: No Locat ion: [facility] S ource: EHR Supervisor Cured Meats noelle: N Teodoroti ce ID: 0001 William lable Time: 08:30:00 AM Rochelle Caputo idane [facility] 2 12:42:30 Educatio n Completed 201812/01/2021 Encounte r for family planning advice;R ecorded Elsewher e: No Locat ion: [facility] S ource: EHR Supervisor Cured Meats noelle: N Teodoroti ce ID: 0001 William lable Time: 12:00:00 PM Rochelle Caputo diane [facility] 2 12:42:[address] Concept Completed 201812/01/2021 Encntr for cross enterprise integrator exam (general ) (routine ) w/o abn findings ;Recorde d Elsewher e: No Locat ion: [facility] S ource: EHR Supervisor Cured Meats noelle: N Karissa ce ID: 0001 William lable Time: 09:15:00 AM Rochelle contreras, [facility] 2 12:42:35 Malaise and fatigue 506553627 Completed 201012/01/2021 Fatigue And Malaise; Practice ID: 0001 Rochelle contreras, [facility] 2 12:42:24 Pregnanc y test negative [id number] Completed 201012/01/2021 Negative Pregnanc y Test;Pra ctice ID: 0001 Rochelle Caputo [facility], [facility] 2 12:42:28 Pre-surg tamica evaluati on Completed 201012/01/2021 Pre-oper ative examinat ion, unspecif ied;Prac stevie ID: 0001 Rochelle Caputo [facility] 2 12:42:26 Amenorrh ea 37875061 Completed 201212/01/2021 AMENORRH EA;Pract ice ID: 0001 Rochelle Caputo [facility] 2 12:41:40 Finding of pattern of menstrua l cycle Completed 201512/01/2021 Other specifie d irregula r menstrua tion;Rec orded Elsewher e: No Locat ion: [facility] S ource: EHR Supervisor Cured Meats noelle: N Practi ce ID: 0001 William lable Time: 04:15:00 PM [facility] 12:42:21 Atypical squamous cells of undeterm ined signific ance on cervical Papanico laou smear [id number] Completed 201512/01/2021 Atyp squam cell of undet signfc cyto smr crvx (ASC-US) ;Recorde d Elsewher e: No Locat ion: [facility] S ource: EHR Supervisor Cured Meats noelle: N Teodoroti ce ID: 0001 William lable Time: 01:30:00 PM Rochelle Caputo diane, [facility] 2 12:42:09 Finding of menstrua l bleeding Completed 201512/01/2021 Menorrha everette;Deangelo rded Elsewher e: No Locat ion: [facility] S ource: EHR Supervisor Cured Meats noelle: N Practi ce ID: 0001 William lable Time: 05:45:00 PM Rochelle Caputo [facility], [facility] 2 12:42:19 Speciali zed medical examinat ion Completed 201212/01/2021 Gynecolo gical Examinat ion;Deangelo rded Elsewher e: No Locat ion: [facility] S ource: EHR Supervisor Cured Meats noelle: N Teodoroti ce ID: 0001 William lable Time: 08:30:00 AM Rochelle contreras, [facility] 2 12:42:37 Infertil ity study Completed 201512/01/2021 Encounte r for fertilit y testing; Practice ID: 0001 Rochelle contreras, [facility] 2 12:42:47 IVF - in-vitro fertiliz ation pregnanc y [id number] 2101 Active 2023 Rochelle Caputo [facility], [facility] 4 11:26:40 Pregnanc y 51514991 Active 2023 Rochelle Caputo [facility], [facility] 4 11:31:00 In vitro fertiliz ation Active order cardiac echo taking bASA - echo WNL report 07/25 complete d Ethan Barrow [facility], [facility] 4 13:58:00 Female infertil ity 4349310 Active metformi n d/c at 13 weeks Jaqui Cerrato CNM [address], [place], [address], [facility] 4 11:39:24 Body mass index 40+ - severely obese 990704528 Active weekly antenata l testing at 34wks [facility] 4 14:09:57 Body mass index 40+ - severely obese 801468701 Active weekly antenata l testing at 34wks [facility] 4 14:09:57 Advanced maternal age 068261484 Active [facility] 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 4 21:15:40 Problem Notes None recorded. Procedures Surgical History Date Name Laterality Status Provider Name and Address Organization Details Recorded Time 2023 embryo transfer completed Rochelle [facility] 02/06/2024 18:14:14 2023 egg inoculation completed Rochelle [facility] 03/19/2024 15:31:38 2022 intrauterine artificial insemination completed Rochelle [facility] 04/27/2023 09:10:49 2022 intrauterine artificial insemination completed Rochelle [facility] 04/07/2023 09:56:38 2021 Dilation and Curettage completed [facility] 04/02/2023 09:58:18 2021 HYSTEROSCOPY, SURGICAL, WITH BIOPSY OF ENDOMETRIUM AND/OR POLYPECTOMY (SURG) completed Marcella [facility] 03/25/2022 09:59:03 2021 Date of Last Pap [facility]ear [facility] 12/30/2021 16:16:44 2015 hysterosalpingography completed Rochelle [facility] 12/01/2021 12:54:20 2015 endometrial biopsy completed [facility] 02/01/2022 10:21:11 2010 Hysteroscopy completed [facility] 02/01/2022 10:27:54 2010 endometrial biopsy completed [facility] 02/01/2022 10:26:13 Imaging Results Imaging Date Name Status LastModified by Organiz ation Details LastModified Time 09/12/2024 US, obstetric, biophysical profile + non-stress test completed [email or web address] [place] [address], [place], [address], 09/12/2024 16:23:05 09/12/2024 US, obstetric, biophysical profile + non-stress test completed [email or web address] [address], [place], [address], 09/12/2024 22:32:08 09/12/2024 non-stress test completed harman [place] [address], [place], [address], 09/12/2024 15:39:01 09/19/2024 US, obstetric, biophysical profile + non-stress test completed [email or web address] [place] [address], [place], [address], 09/19/2024 15:55:02 09/19/2024 US, obstetric, follow-up completed [address], [place], [address], 09/20/2024 13:38:40 09/19/2024 non-stress test completed [email or web address] [place] [address], [place], [address], 09/19/2024 16:01:01 09/27/2024 US, obstetric, follow-up completed [facility] [address], [place], [address], 09/27/2024 18:04:59 09/27/2024 US, obstetric, biophysical profile + non-stress test completed [facility] [address], [place], [address], 09/27/2024 18:05:10 09/27/2024 US, obstetric, follow-up completed [email or web address] [address], [place], [address], 09/27/2024 21:15:51 09/27/2024 non-stress test completed [email or web address] [place] [address] [address], [place], [address], 09/27/2024 17:37:38 10/04/2024 US, obstetric, biophysical profile + non-stress test completed [email or web address] [place] [address], [place], [address], 10/04/2024 18:24:21 10/04/2024 non-stress test completed [email or web address] [place] [address], [place], [address], 10/04/2024 17:40:10 10/04/2024 US, obstetric, biophysical profile + non-stress test completed [email or web address] [address], [place], [address], 10/04/2024 21:17:49 10/10/2024 US, obstetric, biophysical profile + non-stress test completed [email or web address] [place] [address], [place], [address], 10/10/2024 18:08:16 10/10/2024 US, obstetric, biophysical profile + non-stress test completed [email or web address] [address], [place], [address], 10/10/2024 21:50:21 10/10/2024 non-stress test completed [place] [address], [place], [address], 10/12/2024 17:13:07 10/10/2024 non-stress test completed Informati on not available 10/12/2024 17:15:42 10/17/2024 US, obstetric, biophysical profile + non-stress test completed [email or web address] [place] [address], [place], [address], 10/17/2024 17:12:41 10/17/2024 US, obstetric, follow-up completed [email or web address] [address], [place], [address], 10/18/2024 16:06:17 10/17/2024 non-stress test completed [email or web address] [place] [address], [place], [address], 10/22/2024 20:28:40 Procedure Notes None recorded. Medical Equipment None Reported. Allergies No known drug allergies Medications Name Sig Start Date Stop Date Status Note LastModified by Organization Details LastModified Time medroxypr ogesteron e 10 mg tablet TAKE 1 TABLET BY MOUTH EVERY DAY 02/03 completed Not Available Not Available Not Available metformin 500 mg tablet TAKE 1 TABLET BY MOUTH UP TO THREE TIMES DAILY TITRATE TOLERATE D 06/06 completed Not Available Not Available Not Available doxycycli ne hyclate 100 mg capsule TAKE 1 CAPSULE BY MOUTH TWICE DAILY FOR 7 DAYS 04/21 completed Not Available Not Available Not Available Prenatabs Rx 29 mg iron-1 mg tablet TAKE 1 TABLET BY MOUTH EVERY DAY active Not Available Not Available No t Available clomiphen e citrate 50 mg tablet take 2 Tablet by oral route every day for 5 days on days 3-7 of cycle 12/07 completed Prescrib ed Elsewher e: No Locat ion: Aixajuanajames menjivar [facility] odify By[facility] DateTime : 12/04/19 10:53:27 AM Not Available Not Available Not Available Pregnyl 10,000 unit intramusc ular solution get injectio n at provider office 06/22 completed patient give pregnyl injectio n into right hip lot [id number] Exp 4 Not Available Not Available Not Available triamcino lone acetonide 0.1 % topical cream APPLY TO THE AFFECTED AREA TWICE DAILY FOR POISON UMANG 04/21 completed Not Available Not Available Not Available progester one 50 mg/mL intramusc ular oil 04/11 completed Not Available Not Available Not Available amoxicill in 875 mg tablet TAKE 1 TABLET BY MOUTH TWICE A DAY UNTIL GONE 04/11 completed Not Available Not Available Not Available Metrogel Vaginal 0.75 % (37.5 mg/5 gram) insert 1 applicat orful (37.5MG) by vaginal route every day at bedtime 04/27 completed Prescrib ed Elsewher e: No Locat ion: Aixajuanajames [facility] odify By: win Menjivar ncounter DateTime : 04/06/20 16 11:03:37 AM Not Available Not Available Not Available Flagyl 500 mg tablet take 1 tablet (500MG) by oral route every 12 hours for 7 days 07/15 completed Prescrib ed Elsewher e: No Locat ion: Aixaaniket [facility] odify By[facility] DateTime : 07/09/20 13 03:35:33 PM Not Available Not Available Not Available methylpre dnisolone 8 mg tablet TAKE 1 TABLET (8 MG TOTAL) BY MOUTH 2 (TWO) TIMES A DAY FOR 5 DAYS 04/11 completed Not Available Not Available Not Available progester one micronize d 200 mg capsule TAKE 1 CAPSULE BY MOUTH EVERY DAY 06/22 completed Not Available Not Available Not Available estradiol 2 mg tablet TAKE 1 TABLET BY MOUTH TWICE A DAY -WHEN INSTRUCT ED BY 04/11 completed Not Available Not Available Not Available letrozole 2.5 mg tablet TAKE 2 TABLET BY MOUTH EVERY DAY FOR 5 DAYS active Not Available Not Available No t Available leuprolid e 1 mg/0.2 mL subcutane ous kit 04/11 completed Not Available Not Available Not Available Bactrim DS 800 mg-160 mg tablet take 1 tablet by oral route every 12 hours 07/20 completed Prescrib ed Elsewher e: No Locat ion: Butch menjivar [facility] odify By: [email or web address] Encount er DateTime : 07/11/20 13 10:20:09 AM Not Available Not Available Not Available azithromy oj 500 mg tablet TAKE 2 TABLETS BY MOUTH AT THE SAME TIME WITH FOOD DIRECTED BY 04/11 completed Not Available Not Available Not Available ganirelix 250 mcg/0.5 mL subcutane ous syringe 04/11 completed Not Available Not Available Not Available nitrofura ntoin monohydra te/macroc rystals 100 mg capsule TAKE 1 CAPSULE BY MOUTH EVERY 12 HOURS FOR 5 DAYS MUST ADMINIST ER WITH A MEAL/BEATRICE D 04/02 completed Not Available Not Available Not Available Menopur 75 unit subcutane ous solution 04/11 completed Not Available Not Available Not Available Follistim AQ 900 unit/1.08 mL subcutane ous cartridge 04/11 completed Not Available Not Available Not Available Lo Loestrin Fe 1 mg-10 mcg (24)/10 mcg (2) tablet take 1 tablet by oral route every day 10/20 completed Prescrib ed Elsewher e: No Locat ion: Butch menjivar [facility] odify By: [email or web address] Ayaan masters DateTime : 03/06/20 12 02:08:31 PM Not Available Not Available Not Available Vitals Date Recorded Body weight Body height Body mass index (BMI) Body weight Systolic blood pressure Diastolic blood pressure Systolic blood pressure Diastolic blood pressure Provider Name and Address Organization Details Last Updated DateTime 5 226824. 25088 g 165.1 cm 53.1 kg/m2 841467. 97 g 119 mm[Hg] 79 mm[Hg] 119 mm[Hg] 79 mm[Hg] Rochelle Caputo [facility] 5 17:11:27 Date Recorded Body weight Body mass index (BMI) Body height Body height Body mass index (BMI) Body weight Systolic blood pressure Diastolic blood pressure Systolic blood pressure Diastolic blood pressure Provider Name and Address Organization Details Last Updated DateTime 5 132540. 36569 g 53.6 kg/m2 165.1 cm 165.1 cm 53.6 kg/m2 505650. 74 g 106 mm[Hg] 72 mm[Hg] 106 mm[Hg] 72 mm[Hg] Rochelle Caputo [facility] 5 20:26:10 Social History Question Answer Notes LastModified by Organizat ion Details LastModified Time Tobacco Smoking Status Never Smoker Rochelle Caputo [facility] 04/27/2023 09:02:57 Do You Have An Advance Directive? No [email or web address] Information not available 12/02/2021 What Is Your Level Of Alcohol Consumption? None [email or web address] Information not available 04/11/2024 If You Are , What Was Your Level Of Alcohol Consumption Prior To ? Occasional [email or web address] Information not available 04/11/2024 How Many Years Have You Consumed Alcohol? 15 [email or web address] Information not available 12/02/2021 Are You Blind Or Do You Have Difficulty Seeing? No [email or web address] Information not available 12/02/2021 What Is Your Level Of Caffeine Consumption? Occasional [email or web address] Information not available 04/11/2024 How Much Tobacco Do You Chew? None Information not available 12/02/2021 In The 14 Days Before Symptom Onset, Have You Had Close Contact With A [id number] While That Case Was Ill? No [email or web address] Information not available 12/02/2021 In The 14 Days Before Symptom Onset, Have You Had Close Contact With A Person Who Is Under Investigation For COVID-19 While That Person Was Ill? No [email or web address] Information not available 12/02/2021 Have You Been To An Area Known To Be High Risk For COVID-19? No [email or web address] Information not available 12/02/2021 Are You Deaf Or Do You Have Serious Difficulty Hearing? No Information not available 12/02/2021 What Type Of Diet Are You Following? REGULAR [email or web address] Information not available 12/02/2021 What Is The Highest Grade Or Level Of School You Have Completed Or The Highest Degree You Have Received? [id number] [email or web address] Information not available 12/02/2021 What Is Your Occupation? [employer] [email or web address] Information not available 12/02/2021 Have You Ever Been Counseled For Unhealthy Alcohol Use? No [email or web address] Information not available 04/27/2023 Do You Use Protection During Sex? No [email or web address] Information not available 12/02/2021 Do You Use Your Seat Belt Or Car Seat Routinely? Yes [email or web address] Information not available 12/02/2021 Do You Have Smoke And Carbon Monoxide Detectors In Your Home? Yes [email or web address] Information not available 12/02/2021 How Much Tobacco Do You Smoke? No [email or web address] Information not available 12/02/2021 Do You Feel Stressed (tense, Restless, Nervous, Or Anxious, Or Unable To Sleep At Night)? [id number] [email or web address] Information not available 12/02/2021 Do You Use Any Illicit Or Recreational Drugs? No [email or web address] Information not available 12/02/2021 Do You Use Sunscreen Routinely? No [email or web address] Information not available 12/02/2021 Has Tobacco Cessation Counseling Been Provided? No Information not available 04/27/2023 Have You Used IV Drugs? No [email or web address] Information not available 12/02/2021 Do You Or Have You Ever Used Any Other Forms Of Tobacco Or Nicotine? No [email or web address] Information not available 04/27/2023 Sex: Unknown Functional Status Question Answer Note LastModified by Organizat ion Details LastModified Time Do you have difficulty walking or climbing stairs? No [email or web address] Information not available 04/27/2023 Are you able to walk? YESWOREST [email or web address] Information not available 12/02/2021 Are you able to care for yourself? Yes Information not available 04/27/2023 Do you have difficulty dressing or bathing? No [email or web address] Information not available 04/27/2023 What is your exercise level? Occasional [email or web address] Information not available 12/02/2021 Mental Status None recorded. Family History Relationship Description Onset Age of this Age Resolved Age Notes LastModified by Organization Details LastModified Time Maternal Aunt Malignant tumor of breast [email or web address] Not available 04/02 09:58:17 Maternal Grandfather Malignant tumor of prostate 70 [email or web address] Not available 2023 14:59:08 Maternal Grandmother Malignant tumor of colon 60 [email or web address] Not available 2023 14:59:08 Maternal Grandmother Malignant tumor of colon [email or web address] Not available 04/02 09:58:17 Mother Malignant tumor of thyroid gland 48 [email or web address] Not available 2023 14:59:08 Father Malignant neoplasm of liver 70 [email or web address] Not available 2023 14:59:08 Notes:Maternal aunt: Cancer, breast Medical History Condition Response Allergies (Food, seasonal, environmental ) N Other N Drug/Latex Allergies/Reactions N Breast Cancer N Blood Transfusion N Lung Disease N Dermatologic Disorders N Defects or Inherited Disease N Breast Problem N Gestational Diabetes N Hematologic disorders N Anesthesia Complications N History of STI N Deep Vein Thrombosis N Polycystic ovary syndrome Y Anxiety Disorder N Autoimmune disease N Arthritis N Polyps N Infertility Y History of abnormal pap Y Acid Reflux (GERD) N Cancer N Varicosities N Stroke N Neurologic/Epilepsy N Endometriosis N High Cholesterol N Headaches N Fibromyalgia N Kidney Disease N Heart Problems N Thyroid Problems N Kidney or Bladder Problems N GI Problems N Eating Disorder N Anemia N Art (IVF or FET) N Psychiatric Illness N Ovarian Cancer N Diabetes N Pulmonary (TB, Asthma) N Hepatitis/Liver Disease N No Past Medical History N Eczema N Urinary Tract Infection N Abuse/Domestic Violence N Asthma N Trauma/Violence N Depression/ depression N Heart Disease N Pre-Eclampsia N Hypertension N Osteoporosis N Thrombophilias N Gynecological History Statement/Question Response Abnormal Pap Y Date of Last Mammogram Date of LMP 01/18/2024 On BCP's at Conception? N N Was last menstrual period normal Y STIs/STDs N HPV Vaccine N Duration of Flow (days) 5 Current Control Method Frequency of Cycle (Q days) 30 Most Recent Bone Density Sexually Active? Y None Age of first menstrual cycle 12 Date of Last Pap Smear 12/30/2021 Sexual Problems? N LMP Approximate N Obstetrics History GPAL:G 2 P 0 0 1 0 Type Value Spontaneous 1 Living 0 Total 2 Immunizations Vaccine Type Date Status Note Provider Nam e and Address Organization Details Recorded Time RSV, bivalent, protein subunit RSVpreF, diluent reconstituted , 0.5 mL, PF 09/04/2024 completed Rochelle contreras, [facility] 09/12/2024 15:31:04 Tdap 09/04/2024 completed Rochelle contreras, [facility] 09/12/2024 15:31:04 Past Encounters Encounter ID Performer Location Encounter Start Date Encounter Closed Date Diagnosis/Indication Diagnosis SNOMED-CT Code Diagnosis ICD10 Code Diagnosis Note [id number] [address] [place] [address] 12/02/2021 09:30:50 12/02/2021 10:43:43 Irregular periods 83653826 N92.6 check labs, plan discussion at e, cont [place] [id number] [facility] [address] [place] [address] 12/30/2021 15:34:29 12/30/2021 17:34:28 Irregular periods 92267935 N92.6 f/u after us to discuss [id number] Siobhan Roach [facility] [address] [address] 01/05/2022 16:27:16 01/05/2022 17:40:37 Abnormal uterine bleeding [id number] 9100 N93.9 [id number] Jaqui [facility] [address] [place] [address] 01/08/2022 09:17:59 01/08/2022 10:41:00 Polycystic ovary syndrome 301723220 E28.2 [id number] [facility] [address] [address] 02/03/2022 13:51:35 02/05/2022 09:19:07 [id number] Siobhan Roach [facility] [address],[place] [address] 02/03/2022 17:41:42 02/04/2022 14:42:26 Abnormal uterine bleeding 8107338741 9100 N93.9 N83.291 [id number] [facility] [address] [address] 02/03/2022 17:41:56 02/03/2022 18:54:49 Irregular periods 80244210 N92.6 discussed options, including in office vs hospital, pt would like procedure at hospital plan 28-35 days after procedure if no cycle to start monthly prometrium , all questions answered f/u dr larkin preop [id number] Murali Larkin MD [facility] [address],[place] [address] 03/10/2022 17:14:08 03/10/2022 18:18:39 Lesion of endometrium 8716117255 9101 N85.9 this patient is a 36-year-ol d female with a lesion of the endometriu m. We have agreed to perform hysterosco py D&C with endometria l sampling and possible polypectom y. She understand s the risks, benefits, and alternativ es. She has completed the informed consent process and is ready to proceed. [id number] Murali Larkin MD [facility] [address] [address] 03/31/2022 17:24:04 03/31/2022 18:10:07 Abnormal uterine bleeding 6344948138 9100 N93.9 N83.291 this patient is a 36-year-ol d female who presents for follow-up on abnormal uterine bleeding. Reviewed her biopsy results. Her endometriu m was normal. Polyps were removed at the time of hysterosco py D&C. We talked about her recent laboratory evaluation and her elevated testostero ne, triglyceri robby, LDL. We talked about low serum hormone binding globulin and its relationsh ip to type 2 diabetes. We talked about the pathophysi ology of polycystic ovarian syndrome. Talked about her risk of type 2 diabetes. She has a plan to start cyclic progestero ne with Jaqui. She will follow-up with serum in a few weeks. We spent more than 15 minutes face-to-fa ce. More than 50% was counseling . [id number] Jaqui Cerrato CNM [facility] [address],[facility] [place] [place] [address] 04/21/2022 17:16:46 04/21/2022 18:12:25 Irregular periods 92129230 N92.6 Polycystic ovary syndrome [id number] E28.2 [id number] Murali Larkin MD [facility] [address],[facility] [place] [place] [address] 06/16/2022 13:32:25 06/16/2022 15:57:22 Incomplete miscarriage [id number] O03.4 this patient is 36-year-ol d female presents for miscarriag e. She had an ultrasound hospital. She appears to have passed the embryo. There is no gestationa l sac anymore. There is no comment in the ultrasound report about retained products conception . There is some thickness to the intrauteri ne cavity. We talked about this. We need some conclusive evidence that the miscarriag e is complete. Patient continues to have a moderate amount of bleeding in my opinion. We talked about a plan for diagnosis of completed . Will obtain ultrasound in 2 days and will discuss the results after. Her HCG has dropped precipitou sly in the last 2 days. We talked about progestero ne supplement ation after ovulation and. We talked about the timing of this. We talked about some of the supplement s she is taking at this time. We spent over 40 minutes face-to-fa ce. More than 50% was counseling . She will follow-up in 2 days. We talked about miscarriag e. We talked about incidence, etiology, natural history. [id number] Nora Tang [facility] [address],[place] [address] 06/18/2022 09:02:11 06/18/2022 09:50:09 Missed miscarriage 24159557 O02.1 Z3A.00 [id number] Murali Larkin MD [facility] [address] [address] 06/18/2022 10:06:11 06/21/2022 14:48:34 Incomplete miscarriage 392123205 O03.4 36-year-ol d female with incomplete . We have agreed to perform suction D&C. She understand s the risks, benefits, and alternativ es. She has completed the informed consent process and is ready to proceed. We spent over 40 minutes face-to-fa ce. More than 50% was counseling . We made a decision to perform surgery. [id number] Murali Larkin MD [facility] [address],[place] [address] 06/23/2022 13:36:08 06/23/2022 14:42:29 Missed miscarriage [id number] O02.1 Z3A.00 A 36-year-ol d female who presents for follow-up on incomplete miscarriag e. She underwent suction D&C. We talked about her irregular bleeding and her bleeding history. We talked about future . Talked about post ovulatory progestero ne. We spent more than 20 minutes face-to-fa ce. More than 50% was counseling . Talked about strategies for future . Talked about follow-up. We will look for a negative test. She will follow up for visit. [id number] Jaqui Cerrato CNM [facility] [address],[place] [address] 03/02/2023 16:42:07 03/02/2023 18:32:06 Trying to conceive 664113527 Z31.9 plan letrozole days 3-5, US, pregnyl and IUI, reviewed with pt. will check coverage, semen lab cup given and will be collected at home, keep warm. all questions answered and handouts given f/u for IUI Anovulation 34120716 N97 .0 [id number] [facility] [address] [address] 04/01/2023 16:05:31 04/01/2023 16:57:51 Female infertility 1911452 N97.9 [id number] Rochelle Caputo [facility] [address] [address] 04/01/2023 17:16:43 04/01/2023 17:21:01 Trying to conceive 628253280 Z31.9 [id number] [facility] [address],[place] [address] 04/02/2023 09:49:05 04/12/2023 16:52:59 Artificial insemination 11076422 Z31.83 [id number] [facility] [address],[place] [address] 04/26/2023 15:42:06 04/26/2023 16:12:45 Female infertility 1316088 N97.9 [id number] [facility] [address] [place] [address] 04/26/2023 16:21:28 04/26/2023 16:36:53 Trying to conceive 473499612 Z31.9 [id number] Ja[facility] [address],[place] [address] 04/27/2023 09:02:17 04/27/2023 09:39:00 Artificial insemination 25706945 Z31.83 [id number] [facility] [address] [place] [address] 06/22/2023 17:36:27 06/23/2023 12:58:48 Trying to conceive 152578391 Z31.9 refer to wash U/BJC/ ROSI Irregular periods 172735 07 N92.6 continue metformin to regulate [id number] [facility] [address],[place] [address] 03/15/2024 09:06:24 03/15/2024 09:48:49 [id number] Rochelle Caputo [facility] [address],[place] [address] 03/16/2024 14:58:59 03/19/2024 10:43:57 Routine care 089291575 Z34.91 Venereal d isease screening 817647910 Z11.3 Amenorrhea 63331405 N91. 2 [id number] [facility] [address] [address] 04/11/2024 10:03:11 04/11/2024 11:45:15 Gestation period, 12 weeks 42680139 Z3A.12 Routine an tenatal care 253126813 Z34.91 [facility] [address] [address] 04/11/2024 10:03:13 04/11/2024 11:12:45 screening 875658267 Z36.82 Z3A.12 [id number] [facility] [address],[place] [address] 05/09/2024 11:41:34 05/09/2024 12:35:18 Gestation period, 16 weeks 33361952 Z3A.16 [id number] [facility] [address],[place] [address] 06/06/2024 09:40:56 06/06/2024 10:57:42 screening for malformation 718075741 Z36.3 Z3A.20 [id number] [facility] [address],[place] [address] 06/06/2024 09:42:44 06/06/2024 11:41:22 Routine care 294672854 Z34.91 [id number] [facility] [address] [address] 07/04/2024 13:41:31 07/04/2024 14:37:24 screening 487145230 Z36.2 Z3A.24 [id number] [facility] [address] [address] 07/04/2024 13:44:09 07/04/2024 15:29:04 Routine care 596694199 Z34.91 [id number] Siobhna Roach [facility] [address] [address] 08/01/2024 11:11:58 08/01/2024 12:07:46 IVF - in-vitro fertilization 5611550728 2102 O09.813 O99.213 Z3A.28 [id number] [facility] [address],[place] [address] 08/01/2024 11:13:15 08/01/2024 14:01:04 Gestation period, 28 weeks 57648116 Z3A.28 [id number] [facility] [address],[place] [address] 08/15/2024 17:48:10 08/16/2024 07:42:25 Routine care 785393619 Z34.91 [id number] [facility] [address],[place] [address] 08/29/2024 11:34:18 08/29/2024 12:13:59 Maternal obesity complicating , childbirth and the puerperium, antepartum 2561825598 07 O99.213 Z3A.32 [id number] Ja[facility] [address],[place] [address] 08/29/2024 11:35:10 08/29/2024 14:02:45 Gestation period, 32 weeks 4034598 Z3A.32 [id number] [facility] [address],[place] [address] 09/12/2024 13:48:54 09/12/2024 14:22:26 IVF - in-vitro fertilization 3221560160 2102 O09.813 O99.213 O09.523 Z3A.34 [id number] Ebony Corry [facility] [address] [address] 09/12/2024 13:50:38 09/12/2024 15:56:47 [id number] Z33.1 Maternal o besity complicating , childbirth and the puerperium, antepartum 5956762031 07 O99.213 Z3A.34 [id number] [facility] [address],[place] [address] 09/12/2024 13:50:59 09/12/2024 16:02:02 Gestation period, 34 weeks 05204668 Z3A.34 [id number] [facility] [address],[place] [address] 09/19/2024 14:48:46 09/19/2024 15:14:52 Maternal obesity complicating , childbirth and the puerperium, antepartum 7897375238 07 O99.213 O09.813 O09.523 Z3A.35 [id number] Elisabeth Urias [facility] [address],[place] [address] 09/19/2024 14:51:49 09/19/2024 16:09:37 Maternal obesity complicating , childbirth and the puerperium, antepartum 7748025733 07 O99.213 [id number] JOSEPH ALLAN MD [facility] [address],[place] [address] 09/19/2024 14:52:31 09/19/2024 16:26:37 IVF - in-vitro fertilization 9770298134 2102 O09.819 Maternal o besity complicating , childbirth and the puerperium, antepartum 0330379221 07 O99.213 Body mass index 40+ - severely obese 155179003 Z68.43 Gestation period, 35 weeks 82648064 Z3A.35 [id number] [facility] [address] [address] 09/27/2024 16:28:30 09/27/2024 17:07:36 IVF - in-vitro fertilization 5281274423 2102 O09.813 O99.213 O09.523 Z3A.36 [id number] [facility] [address] [address] 09/27/2024 16:30:45 09/27/2024 17:40:23 Maternal obesity complicating , childbirth and the puerperium, antepartum 4310627440 07 O99.213 [id number] [facility] [address] [address] 09/28/2024 16:33:26 10/01/2024 11:23:18 screening 860174266 Z36.85 [id number] [facility] [address] [address] 10/04/2024 15:31:40 10/04/2024 17:42:35 Maternal obesity complicating , childbirth and the puerperium, antepartum 7062567231 07 O99.213 [id number] [facility] [address],[place] [address] 10/04/2024 15:38:25 10/04/2024 17:04:28 Maternal obesity complicating , childbirth and the puerperium, antepartum 0197484235 07 O99.213 O09.813 O09.523 Z3A.37 [id number] [facility] [address],[place] [address] 10/05/2024 15:10:25 10/05/2024 15:45:36 Gestation period, 37 weeks 77138748 Z3A.37 [id number] Siobhan Roach [facility] [address],[place] [address] 10/10/2024 15:37:21 10/10/2024 16:54:50 Maternal obesity complicating , childbirth and the puerperium, antepartum 2928857156 07 O99.213 O09.813 O09.523 Z3A.38 [id number] Rochelle Caputo [facility] [address],[place] [address] 10/10/2024 15:39:10 10/13/2024 09:19:56 IVF - in-vitro fertilization 9982332396 2102 O09.819 [id number] [facility] [address],[place] [address] 10/10/2024 15:39:28 10/10/2024 18:00:14 Gestation period, 38 weeks 66198062 Z3A.38 [id number] Tomasa Astudillopeggy [facility] [address],[place] [address] 10/17/2024 15:27:26 10/17/2024 16:28:05 Maternal obesity complicating , childbirth and the puerperium, antepartum 4009722021 07 O99.213 O09.813 O09.523 Z3A.39 [id number] Rochelle Caputo [facility] [address],[place] [address] 10/17/2024 15:28:20 10/23/2024 03:51:31 IVF - in-vitro fertilization 5559141592 2102 O09.819 [id number] [facility] [address],[place] [address] 10/17/2024 15:28:39 10/17/2024 17:18:52 Routine care 057293067 Z34.91 [id number] [facility] [address] [place] [address] 10/24/2024 10:05:07 10/24/2024 14:50:57 Health Concerns Section Related Observation LastModified by Organization Detai ls LastModified Time None Recorded Concern Status LastModified by Organization Details LastModified Time None Recorded Advance Directives Directive N: Payers Encounter Date Sequence Insurance Name Policy Number Policy Brock Covered Member ID Brock Member ID Guarantor Name 10/10/2024 1 [employer] [place] Angela Wiley [id number] Angela Wiley 10/17/2024 1 [employer] [place] [employer] [place] Angela Wiley [id number] Angela Wiley 10/17/2024 1 [employer] [place] [employer] [place] Angela Wiley [id number] Angela Wiley 10/17/2024 1 [employer] [place] [employer] [place] Angela Wiley [id number] Angela Wiley 10/23/2024 1 [employer] - [employer] [place] Angela Wiley [id number] Angela Wiley OBGyn Episode Ob Episode Information Episode Created Date Number of Fetuses Patient Bloodtype Patient rh Status Prepregnancy Weight lbs Domestic Partner Domestic Partner Phone Father Name Industrial Relations Worker Status 06/23/20 22 1 CLOSED Fetus Data First Name Last Name Admitted to NICU Weight (g) Sex Living Outcome Pediatric Complications Fetus ID Race Codes Race Delivery Type , Spontane ous [id number] Tal Calculation Initial Tal Date Initial Exam Date Initial Exam Provider Initial Ultrasound Date Last Menstrual Period Date Ultra Sound Weeks Gestation 0 Eighteen To Twenty Week Tal Update Ultra Sound Date Fundal Height At Umbil Quickening Date Ultra Sound Latest Weeks Gestation Final Tal Confirmed By Final Tal Confirmed Date Final Tal Date Ultra Sound Latest Days Gestation 0 0 Menstrual History Last Menstrual Date Menses Monthly On Bcp Conception Prior Menses Frequency Hcg Plus Date Menarche Onset Age Delivery Information Delivery Date Delivery Type Labor Anesthesia Weeks Gestation Incision Type Labor Labor Length Hrs Delivered By Post Complications Tubal Sterilization Discharge Date Comments 2 suction d&c Discharge Information Feeding Method Contraceptive Method Maternal HG B and HCT Levels Ob Episode Information Episode Created Date Number of Fetuses Patient Bloodtype Patient rh Status Prepregnancy Weight lbs Domestic Partner Domestic Partner Phone Father Name Industrial Relations Worker Status 04/11/20 24 1 O Positive 292 Ar Josianeeger III OPEN Fetus Data First Name Last Name Admitted to NICU Weight (g) Sex Living Outcome Pediatric Complications Fetus ID Race Codes Race Delivery Type [id number] Problems Problem Notes Problem Name Start Date End Date Resolution Snomed Code Not e Advanced maternal age 359397199 Body mass index 40+ - severely obese 324509918 weekly antena nati testing at 34wks Dilatation of renal pelvis 557091606 In vitro fertilization 6068159 5 order cardiac echotaking bASA - echo WNL report 07/25 completed Female infertility 2953031 m etformin d/c at 13 weeks Tal Calculation Initial Tal Date Initial Exam Date Initial Exam Provider Initial Ultrasound Date Last Menstrual Period Date Ultra Sound Weeks Gestation 10/24/2024 03/15/2024 03/15/2024 01/18/2024 8 Eighteen To Twenty Week Tal Update Ultra Sound Date Fundal Height At Umbil Quickening Date Ultra Sound Latest Weeks Gestation Final Tal Confirmed By Final Tal Confirmed Date Final Tal Date Ultra Sound Latest Days Gestation 04/11/20 24 12 [email or web address] 04/11/2024 10/22/19 25 2 Pre-leti Flowsheet Flowsheet Date 04/11/2024 Hernandez Score Blood Edema Fundus Height Fundus Units Glucose Ketones Leukocytes Nitrite Labor Signs Protein Cervic Dilation Cervic Effacement Cervic Station none Type Weight in lbs Pre/Post Dialysis Refused Weight 290.0024630792 BP Diastolic BP Location Tested BP Systolic BP Type 84 120 Fetus Heart Rate Present Fetus Movement A No Comments Patient states that having s ome cramping, ligament pain and nausea. reviewed precautions, education, infertility, IVF first transfer, started bASA this am, will plan cardia echo and testing, reviewed US, draw nips f/u 4 weeks Flowsheet Date 05/09/2024 Hernandez Score Blood Edema Fundus Height Fundus Units Glucose Ketones Leukocytes Nitrite Labor Signs Protein Cervic Dilation Cervic Effacement Cervic Station none Type Weight in lbs Pre/Post Dialysis Refused 292.030349938348 BP Diastolic BP Location Tested BP Systolic BP Type 80 122 Fetus Heart Rate Present A 161 Present Fetus Movement A Yes Comments Patient fatigue , constipati on, nausea and gums are bleeding more with brushing teeth, ok for dentist, miralax, ?FM, precautions and education Flowsheet Date 06/06/2024 Hernandez Score Blood Edema Fundus Height Fundus Units Glucose Ketones Leukocytes Nitrite Labor Signs Protein Cervic Dilation Cervic Effacement Cervic Station Type Weight in lbs Pre/Post Dialysis Refused BP Diastolic BP Location Tested BP Systolic BP Type Fetus Heart Rate Present Fetus Movement Comments Flowsheet Date 06/06/2024 Hernandez Score Blood Edema Fundus Height Fundus Units Glucose Ketones Leukocytes Nitrite Labor Signs Protein Cervic Dilation Cervic Effacement Cervic Station Type Weight in lbs Pre/Post Dialysis Refused 297.666102221428 BP Diastolic BP Location Tested BP Systolic BP Type 80 123 Fetus Heart Rate Present Fetus Movement A Yes Comments anatomy incomplete, small fi broid stable, +FM, precautions reviewed, education, f/u 4 weeks with rpt us then plan cardiac evaluation Flowsheet Date 07/04/2024 Hernandez Score Blood Edema Fundus Height Fundus Units Glucose Ketones Leukocytes Nitrite Labor Signs Protein Cervic Dilation Cervic Effacement Cervic Station Type Weight in lbs Pre/Post Dialysis Refused BP Diastolic BP Location Tested BP Systolic BP Type Fetus Heart Rate Present Fetus Movement Comments Flowsheet Date 07/04/2024 Hernandez Score Blood Edema Fundus Height Fundus Units Glucose Ketones Leukocytes Nitrite Labor Signs Protein Cervic Dilation Cervic Effacement Cervic Station trace Type Weight in lbs Pre/Post Dialysis Refused 302.382965888859 BP Diastolic BP Location Tested BP Systolic BP Type 79 122 Fetus Heart Rate Present Fetus Movement A Yes Comments Patient states that is havin g nausea and swelling. plan cardiac echo anatomy complete, declines flu and covid, considering rsv, efw 18%, precautions and education plan gct in 4 weeks Flowsheet Date 08/01/2024 Hernandez Score Blood Edema Fundus Height Fundus Units Glucose Ketones Leukocytes Nitrite Labor Signs Protein Cervic Dilation Cervic Effacement Cervic Station Type Weight in lbs Pre/Post Dialysis Refused BP Diastolic BP Location Tested BP Systolic BP Type Fetus Heart Rate Present Fetus Movement Comments Flowsheet Date 08/01/2024 Hernandez Score Blood Edema Fundus Height Fundus Units Glucose Ketones Leukocytes Nitrite Labor Signs Protein Cervic Dilation Cervic Effacement Cervic Station none Type Weight in lbs Pre/Post Dialysis Refused 306.885451280550 BP Diastolic BP Location Tested BP Systolic BP Type 75 119 Fetus Heart Rate Present Fetus Movement A Yes Comments Patient is having cramping a nd nausea. education and precautions discussed tdap and rsv efw 50%, +FM f/u 2 weeks us in 4 testing at 36 weeks IVF Flowsheet Date 08/15/2024 Hernandez Score Blood Edema Fundus Height Fundus Units Glucose Ketones Leukocytes Nitrite Labor Signs Protein Cervic Dilation Cervic Effacement Cervic Station 32 cm Type Weight in lbs Pre/Post Dialysis Refused 309.32132855214 BP Diastolic BP Location Tested BP Systolic BP Type 67 103 Fetus Heart Rate Present A 146 Fetus Movement A Yes Comments doing well +FM, te sting, planning tdap and rsv, education and precautions Flowsheet Date 08/29/2024 Hernandez Score Blood Edema Fundus Height Fundus Units Glucose Ketones Leukocytes Nitrite Labor Signs Protein Cervic Dilation Cervic Effacement Cervic Station Type Weight in lbs Pre/Post Dialysis Refused BP Diastolic BP Location Tested BP Systolic BP Type Fetus Heart Rate Present Fetus Movement Comments Flowsheet Date 08/29/2024 Hernandez Score Blood Edema Fundus Height Fundus Units Glucose Ketones Leukocytes Nitrite Labor Signs Protein Cervic Dilation Cervic Effacement Cervic Station Type Weight in lbs Pre/Post Dialysis Refused Weight 309.670339186855 BP Diastolic BP Location Tested BP Systolic BP Type 78 117 Fetus Heart Rate Present Fetus Movement A Yes Comments Patient is having some cramp ing and nausea. needs testing will schedule efw 52%, call for preadmit, tdap and rsv next week, +FM f/u as scheduled Flowsheet Date 09/12/2024 Hernandez Score Blood Edema Fundus Height Fundus Units Glucose Ketones Leukocytes Nitrite Labor Signs Protein Cervic Dilation Cervic Effacement Cervic Station Type Weight in lbs Pre/Post Dialysis Refused BP Diastolic BP Location Tested BP Systolic BP Type Fetus Heart Rate Present Fetus Movement Comments Flowsheet Date 09/12/2024 Hernandez Score Blood Edema Fundus Height Fundus Units Glucose Ketones Leukocytes Nitrite Labor Signs Protein Cervic Dilation Cervic Effacement Cervic Station Type Weight in lbs Pre/Post Dialysis Refused BP Diastolic BP Location Tested BP Systolic BP Type Fetus Heart Rate Present Fetus Movement Comments Flowsheet Date 09/12/2024 Hernandez Score Blood Edema Fundus Height Fundus Units Glucose Ketones Leukocytes Nitrite Labor Signs Protein Cervic Dilation Cervic Effacement Cervic Station Type Weight in lbs Pre/Post Dialysis Refused With clothes 314.164642668949 BP Diastolic BP Location Tested BP Systolic BP Type 68 L arm 102 sitting Fetus Heart Rate Present Fetus Movement A Yes Comments bpp 10/10 +FM doing well tda p and rsv complete, has preadmit scheduled, gbs at 36 weeks f/u one week precautions and educatio Flowsheet Date 09/19/2024 Hernandez Score Blood Edema Fundus Height Fundus Units Glucose Ketones Leukocytes Nitrite Labor Signs Protein Cervic Dilation Cervic Effacement Cervic Station Type Weight in lbs Pre/Post Dialysis Refused BP Diastolic BP Location Tested BP Systolic BP Type Fetus Heart Rate Present Fetus Movement Comments Flowsheet Date 09/19/2024 Hernandez Score Blood Edema Fundus Height Fundus Units Glucose Ketones Leukocytes Nitrite Labor Signs Protein Cervic Dilation Cervic Effacement Cervic Station Type Weight in lbs Pre/Post Dialysis Refused BP Diastolic BP Location Tested BP Systolic BP Type Fetus Heart Rate Present Fetus Movement Comments Flowsheet Date 09/19/2024 Hernandez Score Blood Edema Fundus Height Fundus Units Glucose Ketones Leukocytes Nitrite Labor Signs Protein Cervic Dilation Cervic Effacement Cervic Station neg none Type Weight in lbs Pre/Post Dialysis Refused Weight 315.76562955252 BP Diastolic BP Location Tested BP Systolic BP Type 75 L arm 110 sitting Fetus Heart Rate Present A 140 Fetus Movement A Yes Comments Doing well, good movem ent. No ctx, LOF or VB. BPP 10/10, borderline polyhydramnios; Flowsheet Date 09/27/2024 Hernandez Score Blood Edema Fundus Height Fundus Units Glucose Ketones Leukocytes Nitrite Labor Signs Protein Cervic Dilation Cervic Effacement Cervic Station Type Weight in lbs Pre/Post Dialysis Refused BP Diastolic BP Location Tested BP Systolic BP Type Fetus Heart Rate Present Fetus Movement Comments Flowsheet Date 09/27/2024 Hernandez Score Blood Edema Fundus Height Fundus Units Glucose Ketones Leukocytes Nitrite Labor Signs Protein Cervic Dilation Cervic Effacement Cervic Station Type Weight in lbs Pre/Post Dialysis Refused Weight 317.960600137797 BP Diastolic BP Location Tested BP Systolic BP Type 72 L arm 111 sitting Fetus Heart Rate Present Fetus Movement Comments Flowsheet Date 09/28/2024 Hernandez Score Blood Edema Fundus Height Fundus Units Glucose Ketones Leukocytes Nitrite Labor Signs Protein Cervic Dilation Cervic Effacement Cervic Station none 144 cm 1cm 30% -2 Type Weight in lbs Pre/Post Dialysis Refused 317.800237266668 BP Diastolic BP Location Tested BP Systolic BP Type 73 119 Fetus Heart Rate Present Fetus Movement A Yes Comments Patient is having hip pain a nd contractions. vertex, +FM bpp yesterday, has preadmit, doing well, precautions and education, gbs collected Flowsheet Date 10/04/2024 Hernandez Score Blood Edema Fundus Height Fundus Units Glucose Ketones Leukocytes Nitrite Labor Signs Protein Cervic Dilation Cervic Effacement Cervic Station Type Weight in lbs Pre/Post Dialysis Refused BP Diastolic BP Location Tested BP Systolic BP Type Fetus Heart Rate Present Fetus Movement Comments Flowsheet Date 10/04/2024 Hernandez Score Blood Edema Fundus Height Fundus Units Glucose Ketones Leukocytes Nitrite Labor Signs Protein Cervic Dilation Cervic Effacement Cervic Station Type Weight in lbs Pre/Post Dialysis Refused BP Diastolic BP Location Tested BP Systolic BP Type Fetus Heart Rate Present Fetus Movement Comments Flowsheet Date 10/05/2024 Hernandez Score Blood Edema Fundus Height Fundus Units Glucose Ketones Leukocytes Nitrite Labor Signs Protein Cervic Dilation Cervic Effacement Cervic Station Type Weight in lbs Pre/Post Dialysis Refused Weight 318.813752825027 BP Diastolic BP Location Tested BP Systolic BP Type 75 125 Fetus Heart Rate Present A 150 Fetus Movement A Yes Comments Patient is having some BH co ntractions. reviewed nst and bpp from yesterday 07/12 +FM doing well, not interested in IOL unless rec, will discuss with dr. larkin f/u one week Flowsheet Date 10/10/2024 Hernandez Score Blood Edema Fundus Height Fundus Units Glucose Ketones Leukocytes Nitrite Labor Signs Protein Cervic Dilation Cervic Effacement Cervic Station Type Weight in lbs Pre/Post Dialysis Refused BP Diastolic BP Location Tested BP Systolic BP Type Fetus Heart Rate Present Fetus Movement Comments Flowsheet Date 10/10/2024 Hernandez Score Blood Edema Fundus Height Fundus Units Glucose Ketones Leukocytes Nitrite Labor Signs Protein Cervic Dilation Cervic Effacement Cervic Station Type Weight in lbs Pre/Post Dialysis Refused Weight 319.898537941848 BP Diastolic BP Location Tested BP Systolic BP Type 79 119 Fetus Heart Rate Present Fetus Movement Comments Flowsheet Date 10/10/2024 Hernandez Score Blood Edema Fundus Height Fundus Units Glucose Ketones Leukocytes Nitrite Labor Signs Protein Cervic Dilation Cervic Effacement Cervic Station none 1cm 50% -3 Type Weight in lbs Pre/Post Dialysis Refused 319.29710153862 BP Diastolic BP Location Tested BP Systolic BP Type 79 119 Fetus Heart Rate Present Fetus Movement A Yes Comments Patient states that is havin g some contractions. bpp 10 reviewed precautions education, labor, +FM discussed IOL if undelivered by [address] larkin rec, f/u one week Flowsheet Date 10/17/2024 Hernandez Score Blood Edema Fundus Height Fundus Units Glucose Ketones Leukocytes Nitrite Labor Signs Protein Cervic Dilation Cervic Effacement Cervic Station Type Weight in lbs Pre/Post Dialysis Refused BP Diastolic BP Location Tested BP Systolic BP Type Fetus Heart Rate Present Fetus Movement Comments Flowsheet Date 10/17/2024 Hernandez Score Blood Edema Fundus Height Fundus Units Glucose Ketones Leukocytes Nitrite Labor Signs Protein Cervic Dilation Cervic Effacement Cervic Station Type Weight in lbs Pre/Post Dialysis Refused Weight 322.857633604318 BP Diastolic BP Location Tested BP Systolic BP Type 72 106 Fetus Heart Rate Present Fetus Movement Comments Flowsheet Date 10/17/2024 Hernandez Score Blood Edema Fundus Height Fundus Units Glucose Ketones Leukocytes Nitrite Labor Signs Protein Cervic Dilation Cervic Effacement Cervic Station neg trace Type Weight in lbs Pre/Post Dialysis Refused 322.880223054091 BP Diastolic BP Location Tested BP Systolic BP Type 72 106 Fetus Heart Rate Present Fetus Movement A Yes Comments Patient is having contractio ns and swelling. +FM, doing well, BPP 1010, precautions and education, IOL per dr. larkin scheduled for 10/23 at 1600, order sent to hospital Flowsheet Date 10/23/2024 Hernandez Score Blood Edema Fundus Height Fundus Units Glucose Ketones Leukocytes Nitrite Labor Signs Protein Cervic Dilation Cervic Effacement Cervic Station Type Weight in lbs Pre/Post Dialysis Refused BP Diastolic BP Location Tested BP Systolic BP Type Fetus Heart Rate Present Fetus Movement Comments Menstrual History Last Menstrual Date Menses Monthly On Bcp Conception Prior Menses Frequency Hcg Plus Date Menarche Onset Age 0401/18/2024 Genetic Screening And Infection History Question Response Note Mental Retardation/Autism false Patient's Age Will Be 35 Years Or Older At Estim ated Date of Delivery false Thalassemia (Turkmen, Vincentian, Mediterranean, Or Background): MCV < 80 false Neural Tube Defect (Meningomyelocele, Spina Bifi da, Or Anencephaly) false Congenital Heart Defect false Down Syndrome false Vamsi-Sachs (eg, Anabaptism, Cajun, Sami-Apache) f alse Mil Disease false Sickle Cell Disease Or Trait () false Hemophilia Or Other Blood Disorders false Muscular Dystrophy false Cystic Fibrosis false Doug's Chorea false Intellectual Disability/Autism false If Yes, Was Person Tested For Fragile X? false Other Inherited Genetic Or Chromosomal Disorder false Maternal Metabolic Disorder (eg, Type 1 Diabetes , PKU) false Patient Or Baby's Father Had A Child With Defects Not Listed Above false Recurrent Loss, Or A Stillbirth false Medications (including Suppl ements, Vitamins, Herbs, OTC Drugs), Illicit/Recreational Drugs, Alcohol false If Yes, Agent(s) And Strength/Dosage false Any Other Genetic History false Live With Someone With TB Or Exposed To TB false Patient Or Partner Has History Of Genital Herpes false Rash Or Viral Illness Since Last Menstrual Perio d false History Of STD, Gonorrhea, Chlamydia, HPV, Syphi lis false Other Infection History false History of HIV false History of Hepatitis false Prior GBS-infected child false Hemoglobinopathy Or Carrier false Other Structural Defect false Recent Travel History Outside of Country false Delivery Information Delivery Date Delivery Type Labor Anesthesia Weeks Gestation Incision Type Labor Labor Length Hrs Delivered By Post Complications Tubal Sterilization Discharge Date Comments Discharge Information Feeding Method Contraceptive Method Maternal HG B and HCT Levels
--- OUTSIDE RECORDS SUMMARY | 2024-10-25 19:57 | XMS_ITS | Referral Summary ---
Author Organization [facility] Address [address] [place] [address] Care Team Providers Care Commercial Collections Specialist Name Role Phone Unavailable Primary Care Provider Unavailabl e Source Comments [facility],non-owned Affiliates and Associated Physician Practices is amultiple site organization consisting of ambulatory clinics and hospital sitesin [place], [place], [place] and [place]. This disclosure is being madepursuant to the Care Everywhere program and may not contain all information available regarding this patient. Last updated 18.[facility] Encounters Date Type Department Care Team Description 07/25/2024 9:45 AM CDT Hospital Encounter [facility] Care [address] [address] Merle Johns MD 07/25/2024 9:45 AM CDT Hospital Encounter [address] [address] Jaqui Cerrato, DELIVERY ASSOCIATE-CHEMICAL PROCESS EQUIPMENT OPERATOR Merle Johns MD Discharge Disposition: Home or Self Care from Last 3 Months Social History Tobacco Use Types Packs/Day Years Used Date Smoking Tobacco: Never Assessed Estimated Date of Delivery Comme nts Yes 10/22/2024 Sex and Gender Information Value Date Recorded Sex Assigned at Not on file Gender Identity Not on file Sexual Orientation Not on file Plan of Treatment Not on file Procedures Procedure Name Priority Date/Time Associated Diagnosis Comments ECHO COMPLETE CG Routine 07/25/2024 11:36 AM CDT resulting from in vitro fertilization, antepartum (HCC) from Last 3 Months Results * ECHO COMPLETE CG (07/25/2024 11:36 AM CDT) MV E pk corey 32.06 cm/s [facility] CV F UJI PACS MV A pk corey 42.06 cm/s [facility] CV F UJI PACS Anatomical Region Laterality Modality Ultrasound 07/25/2024 10:0 1 AM CDT Narrative 07/25/2024 11:49 AM CDT Name: ? Angela Wiley Patient ??Exam Info Gender: ? Female Accession #: ? [id number] Patient Status: ? O/P : ? 1985 Admit Date: ? 07/25/2024 Exam Date/Time: ? 07/25/2024 10:01 AM Site: ? [facility] Current Location: ? CARE EStudy Quality: ? Diagnostic quality Staff Ordering Provider: ? Jqaui Cerrato Interpreting Physician: ? Merle Johns MD Senior Media Buyer: ? Deanna Elizalde [facility] Study Info Procedure: ? ECHO COMPLETE CG Indications: ?O09.819 - resulting from in vitro fertilization, ??antepartum (HCC) Maternal Gestational Status GA by EDC: ? 27 wks , 0 days EDC: ? 10/24/2024 Type: ? Castillo Age: ? 38 yrs Lie: ? Vertex Summary ??* The echocardiogram was within normal limits. ??* Small atrial and ventricular septal defects and persistent ductus arteriosus cannot be excluded as findings. Anatomic Relationships ??Left sided cardiac apex (levocardia). There is normal visceral-cardiac situs, and normal segmental cardiac anatomical relationship. Systemic Veins ??There is normal systemic venous return. Pulmonary Veins ??The visualized pulmonary veins drain normally to the left atrium. Right Atrium ??The right atrial size is normal. Left Atrium ??The left atrial size is normal. Atrial Septum ??Patent foramen ovale with open foramen flap. Color flow is right to left. Right Ventricle ??The right ventricular cavity size is normal. The right ventricular wall thickness is normal. The right ventricular systolic function is normal. RV Outflow Tract ??The right ventricular outflow tract is normal. Left Ventricle ??The left ventricular cavity size is normal. The left ventricular wall thickness is normal. The left ventricular systolic function is normal. Ventricular Septum ??There is no ventricular septal defect with no shunting. LV Outflow Tract ??The left ventricular outflow tract is normal. Tricuspid Valve ??The tricuspid valve is structurally normal. The tricuspid inflow pattern is normal. Tricuspid velocity is within the normal range. There is no tricuspid regurgitation. Mitral Valve ??The mitral valve is structurally normal. The mitral inflow pattern is normal. Mitral velocity is within the normal range. There is no mitral regurgitation. Aorta ?? aortic arch visualized and is without obstruction by 2D, color flow and Doppler. Pulmonary Arteries ??The main pulmonary artery is normal, with confluent branch pulmonary arteries. Ductus Arteriosus ??The antegrade flow velocity and pattern in the ductal arch is normal. A normal ductus arteriosus is appreciated. Doppler ??Flow in the ductus venosus is normal. The umbilical vein flow pattern is normal. The umbilical artery flow pattern is normal. Hydrops Assessment ??No pericardial effusion. No ascites present. No pleural effusion(s). Rhythm ??The rhythm is normal. There is 1:1 AV conduction. Pulmonary Valve ??The pulmonic valve is normal-sized. The transpulmonic velocity is within normal range. There is no pulmonic regurgitation. Aortic Valve ??The aortic valve is normal-sized. The transaortic velocity is within normal range. There is no aortic regurgitation. Doppler Measurements (Fetus A) Atrioventricular Valves Name ? Value ?Normal ??Z-Score Percentile Atrioventricular Valves Doppler TV E Peak Velocity ? 0.3 m/s ? TV A Peak Velocity ? 0.5 m/s ? MV E Peak Velocity ? 0.3 m/s ? MV A Peak Velocity ? 0.4 m/s (Fetus A) Semilunar Valves Name ? Value ?Normal ??Z-Score Percentile Semilunar Valves Doppler PV Peak Velocity. ?0.6 m/s ? AV Peak Velocity () ? 0.7 m/s (Fetus A) Heart Rate Name ? Value ?Normal ??Z-Score Percentile Heart Rate HR ? 141 bpm Report Signatures Finalized by Merle Johns ??MD on 07/25/2024 11:49 AM Procedure Note Merle Johns MD - 07/25/2024 Name: Angela Wiley Patient Exam Info Gender: Female Patient Status: O/P : 1985 Admit Date: 07/25/2024 Exam Date/Time: 07/25/2024 10:01 AM Site: [facility] Current Location: CARE EStudy Quality: Diagnostic quality Staff Ordering Provider: Jaqui Cerrato Interpreting Physician: Merle Johns MD Senior Media Buyer: Deanna Elizalde [facility] Study Info Procedure: ECHO COMPLETE CG Indications: O09.819 - resulting from in vitro fertilization,antepartum (HCC) Maternal Gestational Status GA by EDC: 27 wks , 0 days EDC: 10/24/2024 Type: Castillo Age: 38 yrs Lie: Vertex Summary * The echocardiogram was within normal limits. * Small atrial and ventricular septal defects and persistent ductus arteriosus cannot be excluded as findings. Anatomic Relationships Left sided cardiac apex (levocardia). There is normal visceral-cardiac situs, and normal segmental cardiac anatomical relationship. Systemic Veins There is normal systemic venous return. Pulmonary Veins The visualized pulmonary veins drain normally to the left atrium. Right Atrium The right atrial size is normal. Left Atrium The left atrial size is normal. Atrial Septum Patent foramen ovale with open foramen flap. Color flow is right toleft. Right Ventricle The right ventricular cavity size is normal. The right ventricularwall thickness is normal. The right ventricular systolic function is normal. RV Outflow Tract The right ventricular outflow tract is normal. Left Ventricle The left ventricular cavity size is normal. The left ventricular wall thickness is normal. The left ventricular systolic function is normal. Ventricular Septum There is no ventricular septal defect with no shunting. LV Outflow Tract The left ventricular outflow tract is normal. Tricuspid Valve The tricuspid valve is structurally normal. The tricuspid inflow patternis normal. Tricuspid velocity is within the normal range. There is notricuspid regurgitation. Mitral Valve The mitral valve is structurally normal. The mitral inflow pattern is normal. Mitral velocity is within the normal range. There is no mitral regurgitation. Aorta aortic arch visualized and is without obstruction by 2D, colorflow and Doppler. Pulmonary Arteries The main pulmonary artery is normal, with confluent branch pulmonary arteries. Ductus Arteriosus The antegrade flow velocity and pattern in the ductal arch is normal.A normal ductus arteriosus is appreciated. Doppler Flow in the ductus venosus is normal. The umbilical vein flow patternis normal. The umbilical artery flow pattern is normal. Hydrops Assessment No pericardial effusion. No ascites present. No pleural effusion(s). Rhythm The rhythm is normal. There is 1:1 AV conduction. Pulmonary Valve The pulmonic valve is normal-sized. The transpulmonic velocity iswithin normal range. There is no pulmonic regurgitation. Aortic Valve The aortic valve is normal-sized. The transaortic velocity is withinnormal range. There is no aortic regurgitation. Doppler Measurements (Fetus A) Atrioventricular Valves Name Value Normal Z-ScorePercentile Atrioventricular Valves Doppler TV E Peak Velocity 0.3 m/s TV A Peak Velocity 0.5 m/s MV E Peak Velocity 0.3 m/s MV A Peak Velocity 0.4 m/s (Fetus A) Semilunar Valves Name Value Normal Z-ScorePercentile Semilunar Valves Doppler PV Peak Velocity. 0.6 m/s AV Peak Velocity () 0.7 m/s (Fetus A) Heart Rate Name Value Normal Z-ScorePercentile Heart Rate HR 141 bpm Report Signatures Finalized by Merle Johns MD on 07/25/2024 11:49 AM Jaqui Cerrato APRN-[facility] from Last 3 Months Angela Wiley Personal/Family Self 1985
--- OUTSIDE RECORDS SUMMARY | 2024-10-25 19:57 | XMS_ITS | Patient Health Summary ---
Author Organization [facility] Address [address] [place] [address] Care Team Providers Care Well Treatment Offsider Name Role Phone Unavailable Primary Care Provider Unavailabl e Note from [facility],non-owned Affiliates and Associated Physician Practices is amultiple site organization consisting of ambulatory clinics and hospital sitesin [place], [place], [place] and [place]. This disclosure is being madepursuant to the Care Everywhere program and may not contain all information available regarding this patient. Last updated 18.[facility] Social History Tobacco Use Types Packs/Day Years Used Date Smoking Tobacco: Never Assessed Estimated Date of Delivery Comme nts Yes 10/22/2024 Sex and Gender Information Value Date Recorded Sex Assigned at Not on file Gender Identity Not on file Sexual Orientation Not on file Procedures * ECHO COMPLETE CG(Performed 07/25/2024) Performed for resulting from in vitro fertilization, antepartum (HCC) Results * ECHO COMPLETE CG (07/25/2024 11:36 AM CDT) MV E pk corey 32.06 cm/s [facility] CV F UJI PACS MV A pk corey 42.06 cm/s [facility] CV F UJI PACS Anatomical Region Laterality Modality Ultrasound 07/25/2024 10:0 1 AM CDT Narrative 07/25/2024 11:49 AM CDT Name: ? Angela Lorena Lennonmago Patient ??Exam Info Gender: ? Female Accession #: ? [id number] Patient Status: ? O/P : ? 1985 Admit Date: ? 07/25/2024 Exam Date/Time: ? 07/25/2024 10:01 AM Site: ? [facility] Current Location: ? CARE EStudy Quality: ? Diagnostic quality Staff Ordering Provider: ? Jaqui Cerrato Interpreting Physician: ? Merle Johns MD Clothing And Textiles Teacher: ? Deanna Elizalde [facility] Study Info Procedure: ? ECHO COMPLETE CG [...] bpm Report Signatures Finalized by Merle Johns ?? on 07/25/2024 11:49 AM Procedure Note Merle Johns MD - 07/25/2024 Name: Angela Wiley Patient Exam Info Gender: Female Patient Status: O/P : 1985 Admit Date: 07/25/2024 Exam Date/Time: 07/25/2024 10:01 AM Site: [facility] Current Location: CARE EStudy Quality: Diagnostic quality Staff Ordering Provider: Jaqui Cerrato Interpreting Physician: Merle Johns MD Clothing And Textiles Teacher: Deanna Elizalde [facility] Study Info Procedure: ECHO COMPLETE CG Indications: [...] MD on 07/25/2024 11:49 AM Jaqui Cerrato APRN-TREE WORKER [facility]
--- OUTSIDE RECORDS SUMMARY | 2024-10-25 19:57 | XMS_ITS | Clinical Summary ---
Author Organization [facility] Address [address] [place] [address] Care Team Providers Care Summer School Coordinator Name Role Phone Unavailable Primary Care Provider Unavailabl e Source Comments [facility],non-owned Affiliates and Associated Physician Practices is amultiple site organization consisting of ambulatory clinics and hospital sitesin [place], [place], [place] and [place]. This disclosure is being madepursuant to the Care Everywhere program and may not contain all information available regarding this patient. Last updated 18.[facility] Encounters Date Type Department Care Team Description 07/25/2024 9:45 AM CDT Hospital Encounter [address] [address] Merle Johns MD 07/25/2024 9:45 AM CDT Hospital Encounter [address] [address] Jaqui Cerrato, MEAT SELECTOR-DEADENER Merle Johns MD Discharge Disposition: Home or Self Care from Last 3 Months Social History Tobacco Use Types Packs/Day Years Used Date Smoking Tobacco: Never Assessed Estimated Date of Delivery Comme nts Yes 10/22/2024 Sex and Gender Information Value Date Recorded Sex Assigned at Not on file Gender Identity Not on file Sexual Orientation Not on file Plan of Treatment Health Maintenance Due Date Last Done Comments PAP SMEAR 1985 HIV SCREENING 2000 HEPATITIS C SCREENING 08/06/2003 DTAP/TDAP/TD VACCINES (1 - Tdap) 2004 HEPATITIS B VACCINE (1 of 3 - 19+ 3-dose series) 2004 COVID-19 VACCINE (1 - 2023-2 5 season) 2024 INFLUENZA VACCINE (#1) 2024 OB-ONE HOUR GLUCOSE 07/16/2024 OB-TDAP CURRENT 07/23/2024 OB-RHOGAM INJECTION 07/30/2024 OB-GROUP B STREP SCREEN 09/17/2024 DEPRESSION SCREENING 10/03/2024 ZOSTER VACCINE (1 of 2) 2035 HIB VACCINE Aged Out No longer eligi ble based on patient's age to complete this topic HPV VACCINE Aged Out No longer eligi ble based on patient's age to complete this topic MENINGOCOCCAL (Group B) VACCINE Aged Out No longer eligible based on patient's age to complete this topic MENINGOCOCCAL VACCINE Aged Out No lucrecia damien eligible based on patient's age to complete this topic PNEUMOCOCCAL VACCINE Aged Out No long er eligible based on patient's age to complete this topic Respiratory Syncytial Virus (RSV) Vaccine Pt: or over 60 yrs (No Doses Required) Completed Procedures Procedure Name Priority Date/Time Associated Diagnosis [...] Info Gender: ? Female Accession #: ? [id number] Patient Status: ? O/P : ? 1985 Admit Date: ? 07/25/2024 Exam Date/Time: ? 07/25/2024 10:01 AM Site: ? [facility] Current Location: ? CARE EStudy Quality: ? Diagnostic quality Staff Ordering Provider: ? Jaqui Cerrato Interpreting Physician: ? Merle Johns MD Tableau Analyst: ? Deanna Elizalde [facility] Study Info Procedure: ? ECHO COMPLETE CG Indications: ?O09.819 - resulting from in vitro fertilization, ??antepartum (HCC) Maternal Gestational Status GA by EDC: ? 27 wks , 0 days EDC: ? 10/24/2024 Type: ? Csatillo Age: ? 38 yrs Lie: ? Vertex [...] Merle Johns MD - 07/25/2024 Name: Angela Carrillo Josianeсветлана Patient Exam Info Gender: Female Patient Status: O/P : 1985 Admit Date: 07/25/2024 Exam Date/Time: 07/25/2024 10:01 AM Site: [facility] Current Location: CARE EStudy Quality: Diagnostic quality Staff Ordering Provider: Jaqui Cerrato Interpreting Physician: Merle Johns MD Tableau Analyst: Deanna Elizalde [facility] Study Info Procedure: ECHO COMPLETE [...] MD on 07/25/2024 11:49 AM Jaqui Cerrato MEAT SELECTOR-DEADENER ECHO CUPID from Last 3 Months Angela Wiley Personal/Family Self 1985
--- OUTSIDE RECORDS SUMMARY | 2024-10-25 19:58 | XMS_ITS | Clinical Summary ---
Author Organization [facility] Address [address] [place] [address] Care Team Providers Care Cardiovascular Specialist Name Role Phone Shakir Bella MD Primary Care Provider [phone] Jaqui Cerrato NP Unavailable [phone] Allergies No known active allergies Medications metFORMIN (GLUCOPHAGE) 500 mg tabletIndicatio ns:Polycystic Ovarian Syndrome Take 1 tablet (500 mg total) by mouth 3 (three) times a day 3 Active ascorbic acid (ascorbic acid with lilian hips) 500 mg tablet,chewable Indications:sup plement Take 1 tablet/chew tab (500 mg total) by mouth every morning Active APPLE CIDER VINEGAR ORALIndications :supplement Take 1 tablet by mouth 3 (three) times a day Active vitamin ferrous fumarate-folic () 28 mg iron- 800 mcg tablet Take 1 tablet by mouth daily 30 tablet 11 4 12/07/19 25 Active progesterone 50 mg/mL injection Inject 25mg to 100mg IM daily as directed by MD 20 mL 4 4 Active estradioL (Estrace) 2 mg tablet Take 1 tablet (2 mg total) by mouth 2 (two) times a day When instructed by MD -She does not need more that this one 90 day fill so do not send a request. 180 tablet 4 Active Active Problems Problem Noted Date Diagnosed Date Encounter for assisted repro ductive fertility procedure cycle 02/01/2024 Polycystic ovaries 01/30/2024 Surgical History Surgery Date Site/Laterality Comments DILATION AND CURETTAGE OF UTERUS HYSTEROSCOPY ENDOMETRIAL BIOPSY OVUM / OOCYTE RETRIEVAL 02/01/2024 EGG RETRIEVAL IN MAIN OR TRANSFER EMBRYO INTRAUTERINE 02/06/2024 EMBRYO TRANSFER 1 DAY 5 Medical History Medical History Date Comments Irregular menses Depression Family History Medical History Relation Name Comments Infertile Brother Endometriosis Cousin Heart disease Other non specific grandmother Anesthesia problems Neg Hx Relation Name Status Comments Brother Cousin Alive Other non specific grandmother Alive Social History Tobacco Use Types Packs/Day Years Used Date Smoking Tobacco: Never Passive Smoke Exposure: Never Smokeless Tobacco: Never AUDIT-C Answer Date Recorded Q1: How often do you have a drink containing alc ohol? Monthly or less 02/01/2024 Q2: How many drinks containi ng alcohol do you have on a typical day when you are drinking? 1 or 2 02/01/2024 Q3: How often do you have si x or more drinks on one occasion? Less than monthly 02/01/2024 Personal Safety Answer Date Recorded Have you ever been in or are you currently in a harmful physical or emotional relationship or is someone making you feel afraid or unsafe? Denies 02/01/2024 Comments No Sex and Gender Information Value Date Recorded Sex Assigned at Not on file Legal Sex Female 8:42 AM CDT Gender Identity Not on file Sexual Orientation Not on file Obstetrics History Last Filed Vital Signs Vital Sign Reading Time Taken Comments Blood Pressure 101/66 03/01/2024 2:33 PM CDT Pulse 88 03/01/2024 2:33 PM CDT Temperature 36.2 ??C (97.2 ??F) 02/01/2024 9:05 AM CD T Respiratory Rate 18 02/01/2024 9:30 AM CDT Oxygen Saturation 97% 02/01/2024 9:30 AM CDT Inhaled Oxygen Concentration - - Weight 133.1 kg (293 lb 6.4 oz) 03/01/2024 2:33 PM CDT Height 170.2 cm (5' 7 ) 03/01/2024 2:33 PM CDT Body Mass Index 45.95 03/01/2024 2:33 PM CDT Plan of Treatment Health Maintenance Due Date Last Done Comments Cervical Cancer Screening 1985 Depression Screening 1985 DTaP/Tdap/Td Vaccine (1 - Tdap) 1996 Varicella Vaccines (1 of 2 - 13+ 2-dose series) 1998 Hepatitis B Screening 2003 Regular Well Visit/Exam 18-64 2003 Influenza Vaccine (#1) 2024 Hepatitis C Screening Completed 12/02/2023 HPV Vaccines Aged Out No longer eligi ble based on patient's age to complete this topic Pneumococcal vaccine <65 Aged Out No longer eligible based on patient's age to complete this topic Procedures Procedure Name Priority Date/Time Associated Diagnosis Comments HEPATITIS C ANTIBODY Routine 12/02/2023 1:23 PM PLATE FURNACE OPERATOR Encounter for screening for infections with predominantly sexual mode of transmission from Last 3 Months or Most Recently Relevant to Health Maintenance Results * Hepatitis C antibody Blood (12/02/2023 1:23 PM PLATE FURNACE OPERATOR) Hep C Ab Nonreactive Nonreactive [facility] Comment:Antibodies to HCV no t detected. Does NOT exclude the possibility of recent exposure to HCV. Current interpretive data was last revised on 22 Blood 12/02/2023 1:23 PM PLATE FURNACE OPERATOR 12/02/2023 5:02 PM PLATE FURNACE OPERATOR us Jaqui Eastman MD LAB MICROBIOLOGY - GENERAL OR DERABLES Final Result Performing Organization Address City/State/[facility] Co de Phone Number [facility] Department [place] [address] from Last 3 Months or Most Recently Relevant to Health Maintenance Insurance [place] SIG [id number] [place] [id number] [place] [id number] [place] Care Teams Cardiovascular Specialist Relationship Specialty Start Date End Date Shakir Bella MD PCP - General Family Medicine 08/09/23 Jaqui Cerrato NP [address] [place] [address] Nurse Practitioner Obstetrics and Gynecology 08/09/23
--- OUTSIDE RECORDS SUMMARY | 2024-10-25 19:58 | XMS_ITS | Referral Summary ---
Author Organization [facility] Address [address] [place] [address] Care Team Providers Care Director International Name Role Phone Shakir Bella MD Primary Care Provider [phone] Jaqui Cerrato NP Unavailable [phone] Allergies No known active allergies Medications metFORMIN [...] fertility procedure cycle 02/01/2024 Polycystic ovaries 01/30/2024 Social History Tobacco Use Types Packs/Day Years [...] on file Sexual Orientation Not on file Last Filed Vital Signs Vital Sign Reading [...] 03/01/2024 2:33 PM CDT Plan of Treatment Not on file Procedures Procedure Name Priority Date/Time Associated Diagnosis Comments HEPATITIS C ANTIBODY Routine 12/02/2023 1:23 PM SALES AGENT BUSINESS SERVICES Encounter for screening for infections with predominantly sexual mode of transmission from Last 3 Months or Most Recently Relevant to Health Maintenance Results * Hepatitis C antibody Blood (12/02/2023 1:23 PM SALES AGENT BUSINESS SERVICES) Hep C Ab Nonreactive Nonreactive [facility] Comment:Antibodies to HCV no t detected. Does NOT exclude the possibility of recent exposure to HCV. Current interpretive data was last revised on 22 Blood 12/02/2023 1:23 PM SALES AGENT BUSINESS SERVICES 12/02/2023 5:02 PM SALES AGENT BUSINESS SERVICES us Jaqui Eastman MD LAB MICROBIOLOGY - GENERAL OR DERABLES Final Result [facility] Department [place] [address] from Last 3 Months or Most Recently Relevant to Health Maintenance Insurance AETNA SIG [id number] [place] [address] [facility] [place]PO [place] [id number] [place] [id number] [place] Care Teams Director International Relationship Specialty Start Date End Date Shakir Bella MD PCP - General Family Medicine 08/09/23 Jaqui Cerrato NP [address] [place] [address] Nurse Practitioner Obstetrics and Gynecology 08/09/23
[2024-10-26] MEDS: IBUPROFEN 600 MG TABLET PO (06:32)
--- NOTE | 2024-10-26 08:01 | P.PNOB_ITS ---
OB - PN: Subj Subjective Date/time seen: 10/26/24 08:01 Interval history: day 2 doing well desires d/c home OB - PN: Obj Data Labs 10/25/24 04:27 OB - PN A/P Plan day: 2 Plan: routine care and discharge home Time Spent With Patient Time: Total time spent is greater than 50% in coordination of care (as documented) at patient's floor/unit and/or counseling patient: Review of Systems 2 Review of Systems: All systems reviewed & are unremarkable except as noted in HPI and below Exam 2 Const: General: cooperative and healthy appearing Resp: Effort & Inspection: normal respiratory effort Back/Spine/Pelvis: Back: no CVA tenderness Skin: General skin exam: normal color Neuro: General: patient oriented x3
--- NOTE | 2024-10-26 08:03 | PM.OBDSVD ---
DS: Admitting Diagnosis Discharge Date 10/26/24 Admitting Diagnosis IOL DS: Discharge Diagnosis Discharge Diagnosis (1) Vaginal delivery: Code(s): O80 - Encounter for full-term uncomplicated delivery Status: Acute OB - DS: Summary OB Procedures : None OB Procedures Intrapartum: Spontaneous Vag Delivery OB Procedures: : None Peripartum Data Laceration Description: Perineal - 2nd Degree Episiotomy description: None Time Spent with Patient Time attestation: Total time spent providing and/or coordinating discharge services: DS: Data Data Completed and Pending Pending studies at discharge: Pending at discharge 10/24/24 07:20 Surgical [PTH] Routine Discharge Plan Discharge Attending physician on discharge: Murali Jovel Consulting providers: Jaqui Cerrato Discharging Clinician: Jaqui Cerrato Activity: pelvic rest Diet: regular Patient Language: Bulgarian Discharge Medications: New ibuprofen 600 mg Tablet 600 mg PO Q6H PRN (Reason: Cramping) Qty: 30 0RF No Action Vitamin Tablet 1 tablet PO DAILY Date of admission: 10/23/24 15:45 Primary Care Provider: Shakir Bella Admitting Provider: Murali Jovel Attending physician on admission: Murali Jovel Condition: Stable
[2024-10-26 08:05] VITALS: BP 117/75; PULSE 81; RESP 18; TEMP 36.2; O2SAT 97
[2024-10-27 09:12] VITALS: BP 119/80; PULSE 87; RESP 18; TEMP 37; O2SAT 100
== END 2024-10-26 12:37 | disposition home or self-care (01) | DRG 807 ==
LOC: ANHLDR 15:52 → ANHOB2 10-24 10:42
PROVIDERS: Advanced Practice Midwife; Admitting Provider Obstetrics & Gynecology; PCP Family Medicine; Visit Provider Obstetrics & Gynecology
DX: O69.1XX0 Labor and delivery complicated by cord around neck, with compression, not applicable or unspecified (principal); Z37.0 Single live birth; Z3A.40 40 weeks gestation of pregnancy; O70.1 Second degree perineal laceration during delivery
CPT/HCPCS: 36415; 85014; 85018; 85025; 86592; 86703; 86850; 86900; 86901; 88307; A9270; G0432; J2371; J2590; J2795; J3010; J7120

== ENCOUNTER 2025-05-13 19:07 | Emergency (ER) | payer OTHER, SELFPAY ==
--- NOTE | ~2025-05-13 | US_ITS ---
EXAM: ABDOMEN ULTRASOUND HISTORY: Biliary colic, right upper quadrant abdominal pain COMPARISON: None FINDINGS: LIVER: The liver is increased in echogenicity and unremarkable in size. The portal vein is patent, demonstrating hepatopedal flow. GALLBLADDER: Findings suggesting adenomyomatosis is identified on cine view causing focal, gallbladder wall thicke flower. No diffuse gallbladder wall thickening or pericholecystic fluid. BILE DUCTS: Common bile duct measures 2.1mm. PANCREAS: Limited evaluation of the pancreas secondary to overlying bowel gas IMPRESSION: Limited evaluation of the pancreas secondary to overlying bowel gas Focal gallbladder wall thickening (on cine view) suggesting adenomyomatosis for which surgical consul tation is suggested. Reviewed, dictated and finalized at location A. IMPRESSION: Limited evaluation of the pancreas secondary to overlying bowel gas Focal gallbladder wall thickening (on cine view) suggesting adenomyomatosis for which surgical consultation is suggested.
--- OUTSIDE RECORDS SUMMARY | 2025-05-13 19:09 | XMS_ITS | Clinical Summary ---
Author Organization [facility] Address [address] [place] [address] Care Team Providers Care Phthalic Acid Purifier Name Role Phone Shakir Bella MD Primary Care Provider [phone] Jaqui Cerrato NP Unavailable [phone] Allergies No known active allergies Medications metFORMIN [...] by mouth daily 30 tablet 11 4 Active progesterone 50 mg/mL injection Inject 25mg [...] 88 03/01/2024 2:33 PM CDT Temperature 36.2 C (97.2 F) 02/01/2024 9:05 AM CDT Respiratory Rate 18 02/01/2024 9:30 AM CDT Oxygen Saturation 97% 02/01/2024 9:30 AM CDT Inhaled Oxygen Concentration - - Weight 133.1 kg (293 lb 6.4 oz) 03/01/2024 2:33 PM CDT Height 170.2 cm (5' 7) 03/01/2024 2:33 PM CDT Body Mass Index 45.95 03/01/2024 2:33 PM CDT Plan of Treatment Health Maintenance Due Date Last Done Comments Cervical Cancer Screening 1985 Depression Screening 1985 Varicella Vaccines (1 of 2 - 13+ 2-dose series) 1998 Hepatitis B Screening 2003 Regular Well Visit/Exam 18-64 2003 HPV Vaccines (1 - 3-dose SCD M series) 2012 Influenza Vaccine (#1) 2025 DTaP/Tdap/Td Vaccine (2 - Td or Tdap) 09/04/2034 09/04/2024 Hepatitis C Screening Completed 12/02/2023 Pneumococcal vaccine <65 Aged Out No longer eligible based on patient's age to complete this topic Procedures Procedure Name Priority Date/Time Associated Diagnosis Comments HEPATITIS C ANTIBODY Routine 12/02/2023 1:23 PM HIGH SCHOOL PHYSICAL EDUCATION TEACHER Encounter for screening for infections with predominantly sexual mode of transmission from Last 3 Months or Most Recently Relevant to Health Maintenance Results * Hepatitis C antibody Blood (12/02/2023 1:23 PM HIGH SCHOOL PHYSICAL EDUCATION TEACHER) Hep C Ab Nonreactive Nonreactive [facility] Comment:Antibodies to HCV no t detected. Does NOT exclude the possibility of recent exposure to HCV. Current interpretive data was last revised on 22 Blood 12/02/2023 1:23 PM HIGH SCHOOL PHYSICAL EDUCATION TEACHER 12/02/2023 5:02 PM HIGH SCHOOL PHYSICAL EDUCATION TEACHER us Jaqui Eastman MD LAB MICROBIOLOGY - GENERAL OR DERABLES Final Result [facility] Department [place] [address] from Last 3 Months or Most Recently Relevant to Health Maintenance Insurance AETNA SIG [id number] [place] [id number] [place] [id number] [place] [address] [place] Care Teams Phthalic Acid Purifier Relationship Specialty Start Date End Date Shakir Bella MD PCP - General Family Medicine 08/09/23 Jaqui Cerrato NP [address] [place] [address] Nurse Practitioner Obstetrics and Gynecology 08/09/23
--- OUTSIDE RECORDS SUMMARY | 2025-05-13 19:09 | XMS_ITS | Clinical Summary ---
Author Organization [facility] Address [address] [place] [address] Care Team Providers Care Production Metal Sprayer Name Role Phone Unavailable Primary Care Provider Unavailabl e Source Comments [facility],non-owned Affiliates and Associated Physician Practices is amultiple site organization consisting of ambulatory clinics and hospital sitesin [place], [place], [place] and [place]. This disclosure is being madepursuant to the Care Everywhere program and may not contain all information available regarding this patient. Last updated 18.[facility] Social History Tobacco Use Types Packs/Day Years Used Date Smoking Tobacco: Never Assessed Estimated Date of Delivery Comme nts Yes 10/22/2024 Sex and Gender Information Value Date Recorded Sex Assigned at Not on file Legal Sex Female 9:44 AM CDT Gender Identity Not on file Sexual Orientation Not on file Plan of Treatment Health Maintenance Due Date Last Done Comments HIV SCREENING 2000 HEPATITIS C SCREENING 08/06/2003 DTAP/TDAP/TD VACCINES (1 - Tdap) 2004 HEPATITIS B VACCINE (1 of 3 - 19+ 3-dose series) 2004 PAP SMEAR 2006 HPV VACCINE (1 - 3-dose SCDM series) 2012 COVID-19 VACCINE ( - 2023-2 5 season) 2024 OB-ONE HOUR GLUCOSE 07/16/2024 OB-TDAP CURRENT 07/23/2024 OB-RHOGAM INJECTION 07/30/2024 OB-GROUP B STREP SCREEN 09/17/2024 DEPRESSION SCREENING 10/03/2024 INFLUENZA VACCINE (#1) 2025 ZOSTER VACCINE (1 of 2) 2035 Respiratory Syncytial Virus (RSV) Vaccine Pt: or over 60 yrs (1 - 1-dose 75+ series) 2060 HIB VACCINE Aged Out No longer eligi ble based on patient's age to complete this topic MENINGOCOCCAL (Group B) VACC INE SHARED DECISION-MAKING Aged Out No longer eligibl e based on patient's age to complete this topic MENINGOCOCCAL GROUPS A/C/Y/W VACCINE Aged Out No longer eligible b ased on patient's age to complete this topic PNEUMOCOCCAL VACCINE Aged Out No long er eligible based on patient's age to complete this topic Insurance [facility] Address: [address] [place] [address] T AETNA SELF PAY NO INSURANCE Member Subscriber Plan / Payer (Ef fective for All Dates) Name:Wally Wiley Member ID:Not on file Relation to Subscriber:Not on file Name:WALLY WILEY Subscriber ID:Not on file (Home) Address: [address] [address] Payer ID:Not on file Group ID:Not on file Type:Self Pay Address: [place], [place]
[2025-05-13 19:13] VITALS: BP 142/96; PULSE 108; RESP 17; TEMP 36.2; O2SAT 99
--- OUTSIDE RECORDS SUMMARY | 2025-05-13 20:41 | XMS_ITS | Clinical Summary ---
Author Organization [facility] Address [address] [place] [address] Care Team Providers Care Specimen Preparation Assistant Name Role Phone Unavailable Primary Care Provider Unavailabl e Source Comments [facility],non-owned Affiliates and Associated Physician Practices is amultiple site organization consisting of ambulatory clinics and hospital sitesin [place], [place], [place] and [place]. This disclosure is being madepursuant to the Care Everywhere program and may not contain all information available regarding this patient. Last updated 18.[facility] Social History Tobacco Use Types Packs/Day Years [...] patient's age to complete this topic Insurance T AETNA SELF PAY NO INSURANCE Member Subscriber Plan / Payer (Ef fective for All Dates) Name:Wally Wiley Member ID:Not on file Relation to Subscriber:Not on file Name:WALLY WILEY Subscriber ID:Not on file (Home) Address: [address] [address] Payer ID:Not on file Group ID:Not on file Type:Self Pay Address: [place], [place]
--- OUTSIDE RECORDS SUMMARY | 2025-05-13 20:41 | XMS_ITS | Clinical Summary ---
Author Organization [facility] Address [address] [place] [address] Care Team Providers Care Manufacturing Sr Engineer Name Role Phone Shakir Bella MD Primary Care Provider [phone] Jaqui Cerrato NP Unavailable [phone] Allergies No known active allergies Medications metFORMIN [...] HEPATITIS C ANTIBODY Routine 12/02/2023 1:23 PM EGG SORTER Encounter for screening for infections with predominantly sexual mode of transmission from Last 3 Months or Most Recently Relevant to Health Maintenance Results * Hepatitis C antibody Blood (12/02/2023 1:23 PM EGG SORTER) Hep C Ab Nonreactive Nonreactive [facility] Comment:Antibodies to HCV no t detected. Does NOT exclude the possibility of recent exposure to HCV. Current interpretive data was last revised on 22 Blood 12/02/2023 1:23 PM EGG SORTER 12/02/2023 5:02 PM EGG SORTER us Jaqui Eastman MD LAB MICROBIOLOGY - GENERAL OR DERABLES Final Result [facility] Department [place] [address] from Last 3 Months or Most Recently Relevant to Health Maintenance Insurance AETNA SIG [id number] [place] [id number] [place] [id number] [place] Care Teams Manufacturing Sr Engineer Relationship Specialty Start Date End Date Shakir Bella MD PCP - General Family Medicine 08/09/23 Jaqui Cerrato NP [address] [place] [address] Nurse Practitioner Obstetrics and Gynecology 08/09/23
[2025-05-13 20:55] LABS: BEDSIDEPREGUCG Negative (Negative)
[2025-05-13 20:59] LABS: Hematocrit 41.5 % (37.0-47.0); Hemoglobin 14.1 g/dL (12.0-15.0); Immature Granulocyte Percent A 0.2 % (0-0.5); Lymphocytes Absolute Auto 0.94 K/mm3 (0.9-3.2); Mean Corpuscular HGB Conc 34.0 g/dl (32-36); Mean Corpuscular Hemoglobin 29.6 pg (26-34); Mean Corpuscular Volume 87.2 fl (80-100); Nucleated Red Blood Cells Absolute Auto 0.000 K/mm3 (0.0-0.012); Nucleated Red Blood Cells Perc 0.0 % (0.0-0.2); Platelet Count Result 232 k/mm3 (150-375); Red Blood Count 4.76 M/mm3 (4.2-5.4); White Blood Count 8.3 K/mm3 (4.5-10.0)
[2025-05-13 21:04] LABS: Add Urine Microscopic? YES; Appearance Urine Clear (Clear); Glucose Urine UA Negative (Negative); Leukocyte Esterase Ur Negative LEU/UL (Negative); Nitrate Urine Negative (Negative); Non Pathogenic Casts 0-2; Specific Grav Ur 1.027 (1.001-1.035)
[2025-05-13 21:16] LABS: Alanine Aminotransferase 20 U/L (6-35); Albumin Level 4.3 g/dL (3.5-5.1); Alkaline Phosphatase 46 U/L (38-126); Anion Gap 9 mmol/L (4-12); Aspartate Amino Transferase 27 U/L (14-36); Bilirubin,Total 0.5 mg/dL (0.2-1.3); Blood Urea Nitrogen 15 mg/dL (7-17); Calcium 9.3 mg/dL (8.4-10.2); Carbon Dioxide 25 mmol/L (22-30); Chloride 101 mmol/L (98-107); Estimated CRCL calculation 118 ml/min; Estimated Glomerular Filt Rate > 60; Glucose 95 mg/dL (65-110); Lipase 41 U/L (23-300); Potassium 4.0 mmol/L (3.4-5.0); Sodium 135 mmol/L (137-145); Total Protein 8.1 g/dL (6.3-8.2)
--- NOTE | 2025-05-13 21:58 | ED_ITS ---
HPI - General Adult General Chief complaint: Abdominal Pain Stated complaint: abd pain Time Seen by Provider: 05/13/25 20:34 History of Present Illness HPI narrative: 39-year-old female presents to the emergency department for evaluation for intermittent right upper quadrant abdominal pain. Patient states that the pain was intermittent today and patient reports she did have some madrigal color stools earlier in the day but they are not hand colored anymore. Denies any prior history of gallbladder disease. Patient states typically her pain worsens a few hours after eating and not immediately after eating. Patient declined any medications for pain control. Patient is well-appearing at time of evaluation. Related Data Allergies Allergy/AdvReac Type Severity Reaction Status Date / Time No Known Allergies Allergy Mild Verified 10/23/24 17:24 Review of Systems 2 Review of Systems: All systems reviewed & are unremarkable except as noted in HPI and below PMFSH Past Medical History Medical History Morbid obesity with BMI of 50.0-59.9, adult Surgical History Surgical History H/O dilation and curettage Family History Family History Father No problems noted. Mother No problems noted. Sibling No problems noted. Other No pertinent family history Social History Social History Smoking status: Never smoker Second hand tobacco smoke exposure: No Alcohol intake: current Substance use: never Substance use type: does not use Do You Feel Safe in your Home?: Yes Lack of Transportation: No Lack of Food: Never True Current Housing: I Have Housing Concerned About Future Housing: No Difficulty Paying Gas/Electric Bills: No Difficulty Paying for Meds: No Currently Unemployed: No Education: Bachelor's Degree Difficulty w/ Childcare or Family Care: No Living arrangements: with family Occupation/Education: occupation 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 HEAD: normocephalic, atraumatic. EYES: PERRLA/EOMI, conjunctivae clear. NOSE: Normal no drainage EARS:TMS clear with good light reflex. THROAT: Pharynx clear, no exudate. NECK: Supple. No adenopathy, no masses. RESPIRATORY: Airway patent, respirations nonlabored. Clear to auscultation bilaterally, no rales, rhonchi, wheezing. CARDIOVASCULAR: Regular rate and rhythm without murmurs rubs or gallops. ABDOMINAL: Mild right upper quadrant tenderness to palpation with no rebound or guarding MUSCULOSKELETAL: Moves all extremities. Strength/ROM intact, No edema, No calf tenderness. NEURO: Alert. Cranial nerves II through XII intact. Good gait. Good coordination SKIN: Warm, dry. Normal Color Course Vital Signs Vital signs: Vital Signs Temperature 97.2 F L 05/13/25 19:13 Pulse Rate 108 H 05/13/25 19:13 Respiratory Rate 17 05/13/25 19:13 Blood Pressure 142/96 H 05/13/25 19:13 Pulse Oximetry 99 05/13/25 19:13 Oxygen Delivery Room Air 05/13/25 19:13 Temperature 97.8 F 05/13/25 22:38 Pulse Rate 89 05/13/25 22:38 Respiratory Rate 18 05/13/25 22:38 Blood Pressure 144/89 H 05/13/25 22:38 Pulse Oximetry 99 05/13/25 22:38 Oxygen Delivery Room Air 05/13/25 19:13 Medical Decision Making [facility] Narrative Medical decision making narrative: 39-year-old female presents to the emergency department for evaluation for right upper quadrant abdominal pain. Patient is currently afebrile with no leukocytosis hemoglobin 14.1. Patient has no significant acute abnormalities on her CMP with normal T bili AST ALT alk-phos and lipase. Urine was negative for an infection, urine bilirubin is negative. Suspect duodenitis due to the patient complaining of pain that starts few hours after eating. Patient will be started on omeprazole and encouraged close follow-up with GI Patient was updated on the results of her workup. Patient will have close follow-up with her primary care physician for additional outpatient testing including a HIDA scan. Differential Diagnosis Differential Diagnosis: Biliary colic, cholecystitis, gallbladder dysfunction Vital Signs Vital Signs: Vital Signs Temperature 97.2 F L 05/13/25 19:13 Pulse Rate 108 H 05/13/25 19:13 Respiratory Rate 17 05/13/25 19:13 Blood Pressure 142/96 H 05/13/25 19:13 Pulse Oximetry 99 05/13/25 19:13 Oxygen Delivery Room Air 05/13/25 19:13 Temperature 97.8 F 05/13/25 22:38 Pulse Rate 89 05/13/25 22:38 Respiratory Rate 18 05/13/25 22:38 Blood Pressure 144/89 H 05/13/25 22:38 Pulse Oximetry 99 05/13/25 22:38 Oxygen Delivery Room Air 05/13/25 19:13 Lab Data Lab results reviewed: Yes I reviewed the patient's lab results. 05/13/25 20:49 05/13/25 20:49 Labs: Lab Results 05/13/25 05/13/25 Range/Units 20:49 20:52 WBC 8.3 (4.5-10.0) K/mm3 RBC 4.76 (4.2-5.4) M/mm3 Hgb 14.1 D (12.0-15.0) g/dL Hct 41.5 (37.0-47.0) % MCV 87.2 (80-100) fl MCH 29.6 (26-34) pg MCHC 34.0 (32-36) g/dl RDW 14.2 (11.5-14.5) % Plt Count 232 (150-375) k/mm3 MPV 10.5 H (7.4-10.4) fl Immature Gran % (Auto) 0.2 (0-0.5) % Neut % (Auto) 81.9 H (45.5-73.1) % Lymph % (Auto) 11.4 L (18.3-44.2) % [place] % (Auto) 5.1 (2.6-8.5) % Eos % (Auto) 1.0 (0-4.4) % Baso % (Auto) 0.4 (0.2-1.2) % Lymph # (Auto) 0.94 (0.9-3.2) K/mm3 [place] # (Auto) 0.4 (0.1-0.6) K/mm3 Eos # (Auto) 0.1 (0-0.3) K/mm3 Baso # (Auto) 0.0 (0.0-0.1) K/mm3 Abs Immat Gran (auto) 0.02 (0.00-0.031) K/mm3 Absolute Neuts (auto) 6.8 H (1.3-6.7) K/mm3 Absolute Nucleated RBC 0.000 (0.0-0.012) K/mm3 Nucleated RBC % 0.0 (0.0-0.2) % Sodium 135 L (137-145) mmol/L Potassium 4.0 (3.4-5.0) mmol/L Chloride 101 (98-107) mmol/L Carbon Dioxide 25 (22-30) mmol/L Anion Gap 9 (4-12) mmol/L BUN 15 (7-17) mg/dL Creatinine 0.80 (0.7-1.0) mg/dL Estim Creat Clear Calc 118 ml/min Estimated GFR > 60 (59 - ) Glucose 95 (65-110) mg/dL Calcium 9.3 (8.4-10.2) mg/dL Total Bilirubin 0.5 (0.2-1.3) mg/dL AST 27 (14-36) U/L ALT 20 (6-35) U/L Alkaline Phosphatase 46 (38-126) U/L Total Protein 8.1 (6.3-8.2) g/dL Albumin 4.3 (3.5-5.1) g/dL Lipase 41 (23-300) U/L Urine Color Yellow (Yellow) Urine Appearance Clear (Clear) Urine pH 7.0 (5.0-9.0) Ur Specific [place] 1.027 (1.001-1.035) Urine Protein Negative (Negative) mg/dL Urine Glucose (UA) Negative (Negative) mg/dL Urine Ketones Negative (Negative) mg/dL Ur Blood (Man) Trace (Negative) Urine Nitrate Negative (Negative) Urine Bilirubin Negative (Negative) Urine Urobilinogen 1.0 (<2.0) mg/dL Leukocyte Esterase Rfl Negative (Negative) KIMBERLI/UL Urine RBC 6-10 H (0-2) /hpf Urine WBC 0-5 (0-3) /hpf Ur Squamous Epith Cells None seen (Few) /hpf Urine Bacteria None seen /hpf Urine Casts 0-2 POC Urine HCG, Qual Negative (Negative) Imaging Data Radiologist's impression: Impressions Abdomen Ultrasound 08/11/25 22:03 IMPRESSION: Limited evaluation of the pancreas secondary to overlying bowel gas Focal gallbladder wall thickening (on cine view) suggesting adenomyomatosis for which surgical consultation is suggested. Discharge Plan Discharge Clinical Impression: Right upper quadrant abdominal pain, Duodenitis Patient Disposition: Home Condition: Stable Instructions: Antibiotic Form, Biliary Colic (ED), Low Fat Diet (ED), Clear Liquid Diet (ED), Diet for Stomach Ulcers and Gastritis (ED), Abdominal Pain (ED), Duodenitis (ED) Additional Instructions: Avoid alcohol and avoid NSAIDs. Follow a clear liquid diet for the next few days. Advance to a low-fat diet as tolerated. Omeprazole as directed for the next 14 days. Have close follow-up with your primary care physician. Close follow-up with GI physician for possible duodenitis. Have follow-up with surgery for gallbladder dysfunction. [place] for pain control and Zofran as needed for nausea control. Patient Language: Macedonian Prescriptions: New hydrocodone-acetaminophen 5-325 mg tablet 1 tablet PO Q12H PRN (Reason: pain) Qty: 14 0RF omeprazole 20 mg capsule,delayed release(DR/EC) 20 mg PO DAILY 14 Days Qty: 14 0RF ondansetron 4 mg tablet,disintegrating 4 mg PO Q8H PRN (Reason: nausea and vomiting) Qty: 14 0RF Discontinued ibuprofen 600 mg Tablet 600 mg PO Q6H PRN (Reason: Cramping) Qty: 30 0RF Follow-up/Referrals: Zulema Harper MD [Physician] - Shakir Bella MD [Primary Care Provider] - Jasiel Montes MD [Physician] -
[2025-05-13 22:08] VITALS: BP 147/93; RESP 16; O2SAT 97
[2025-05-13] MEDS: PANTOPRAZOLE SODIUM IV 40 MG VIAL IV PUSH (22:28)
[2025-05-13 22:38] VITALS: BP 144/89; PULSE 89; RESP 18; TEMP 36.6; O2SAT 99
== END 2025-05-13 22:39 | disposition home or self-care (01) ==
PROVIDERS: Emergency Provider Emergency Medicine; PCP Family Medicine
DX: K29.80 Duodenitis without bleeding (principal); R10.11 Right upper quadrant pain; E66.01 Morbid (severe) obesity due to excess calories; Z68.42 Body mass index [BMI] 45.0-49.9, adult
CPT/HCPCS: 36415; 76705; 80053; 81001; 81025; 83690; 85025; 96374; 99284; J2470